=== PATIENT | female | born 1940 | race Caucasian/White ===

== ENCOUNTER 2017-03-27 05:49 | Observation (INO) | payer MEDICARE ==
[~2017-03-27] VITALS: Ht 157.5 cm; Wt 76.0 kg
[~2017-03-27 05:49] MED LIST: CITA40TA4 PO; DILA2TAB4 PO; DOCU1CAP66 PO; FURO20TA PO; OMEP20TA93 PO; TEMA15CA PO
[2017-03-27] MEDS ORDERED: METOPROLOL TARTRATE 25 MG TAB PO PRN (06:15)
[2017-03-27] MEDS ORDERED: ceFAZolin 2 GM PREMIX 50 ML IV SCH (06:15)
[2017-03-27] MEDS ORDERED: POVIDONE IODINE 5% (ANTISEPSIS KIT) 4 APPLICATIONS EACH NARE PRN (06:15)
[2017-03-27] MEDS ORDERED: CHLORHEXIDINE GLUCONATE 2 % 1 PACK (2 CLOTHS) TOPICAL PRN (06:15)
[2017-03-27] MEDS ORDERED: VANCOMYCIN 1000 MG/NS 250 ML (for <70 kg) IV SCH ×2 (06:15)
[2017-03-27] MEDS ORDERED: LACTATED RINGER'S 1000 ML IV PRN (06:15)
[2017-03-27] MEDS ORDERED: SODIUM CHLORID 0.9% 500 ML IV PRN (06:15)
[2017-03-27] MEDS ORDERED: CHLORHEXIDINE GLUCONATE 4% SOLN 120 ML BTL TOPICAL SCH (06:15)
[2017-03-27] MEDS ORDERED: ENDO10TA8 PO (07:41)
[2017-03-27] MEDS ORDERED: GENTAMICIN SULFATE 80 MG/2 ML VIAL ONE (07:54)
[2017-03-27] MEDS ORDERED: APREPITANT 40 MG CAP ONE (08:13)
[2017-03-27] MEDS ORDERED: BUPIVACAINE/EPINEPHRINE 0.25% PF 30 ML VIAL ONE (10:08)
[2017-03-27] MEDS ORDERED: HYDROmorphone HCL PF 1 MG/ML VIAL IV PUSH PRN (10:30)
[2017-03-27] MEDS ORDERED: diphenhydrAMINE HCL 25 MG CAP PO PRN (10:30)
--- NOTE | 2017-03-27 10:33 | PD.OP ---
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 Surgeon: Raul Cr Senior Product Engineer(s): EVENS Aguilar PA-C The surgical procedure was assisted by my physician trust manager assistant. My P.A. presence was necessary throughout this case for the manipulation and positioning of the surgical extremity. My P.A. was assisting me throughout the duration of this procedure. The skill set of a physician trust manager assistant was medically necessary to complete this procedure. During the surgical case the surgical assistant certified was working at the back table and the physician trust manager assistant was directly assisting me. Operation and Findings: Patient was seen and evaluated preoperatively. Treatment options were discussed regarding left humerus fracture nonunion including surgical and nonsurgical treatments. After detailed discussion of risk and benefits of procedure patient wishes to proceed with surgery. Risks of surgery include bleeding, infection, nonunion, malunion, painful hardware, loss of motion of shoulder and elbow, weakness and numbness of arm, as well as medical competitions including blood clots stroke and . Patient was brought to operating room and placed on the OR table. GETA was administered by anesthesiologist. Left arm and shoulder were prepped with alcohol followed by Hibiclens and draped usual sterile fashion. Timeout procedure was performed. IV antibiotics were given prior to incision. A standard anterior approach was utilized. Subcutaneous tissues was dissected with Bovie. Cephalic vein was identified and protected. Proximally the deltopectoral interval was opened. Distally the brachialis was split. The fracture and hardware were identified. Attention was now turned toward hardware removal. The plate was completely exposed. There was dense scar tissue around the plate. Each of the screws was now removed. An osteotome was used to elevate the plate. Curettes were used to obtain tissue from around the fracture site for cultures. Next attention was turned towards debridement of the nonunion site. Soft tissue was removed from the fracture site. Fracture site was cleaned with curettes and rongeur. A TPS bur was used to debride the bone back to healthy bleeding bone. The humerus was shortened a few millimeters to obtain good bone contact for compression. The wound was thoroughly irrigated with sterile saline. At this point the fracture was reduced using fracture tenaculums. Multiplanar fluoroscopy confirmed excellent of fracture. A Synthes 4.5 plate was contoured to fit the humerus. Plate was provisionally held the bone with K wires. 4.5 cortical screws were placed on each side of the fracture in compression mode. The screws were placed to add compression to fracture. Multiple screws were placed in each side of the fracture. All screws were predrilled and premeasured for appropriate length. Final fluoroscopy revealed excellent alignment of fracture with well-placed hardware. Incision was thoroughly irrigated. At this point attention was turned iliac crest bone grafting. A 3 cm incision was made over the iliac crest. Subcutaneous tissue dissected with Bovie. Osteotomes were used to create a window in the iliac crest. Bone graft was now harvested from the iliac crest using curettes. After completion of harvesting of the bone graft fascia was closed with #1 Vicryl. Subcutaneous tissues closed with 3-0 Vicryl. Skin was closed with morelia. The incision area was infiltrated with quarter percent Marcaine with epinephrine. Blood was also harvested from the bone graft site. This was mixed with Nucell stem cell graft. After thawing of the stem cells and blood, this was mixed with iliac crest bone graft. This bone graft was now packed around the fracture nonunion site. The defect was completely filled. Fascia was closed with #1 Vicryl,. Subcutaneous tissues closed with 3-0 Vicryl and skin was closed with morelia. Sterile dressings were applied. The patient was transferred to recovery in stable condition. Raul Cr MD Mar 27, 2017 10:33
[2017-03-27] MEDS ORDERED: DO NOT ADM ANY ANTICOAGULANT DRUGS PRN (11:00)
--- NOTE | 2017-03-27 11:11 | RADRPT ---
EXAM DATE/TIME: 03/27/2017 09:58 [facility] COMPARISON: No previous studies available for comparison. INDICATIONS : Left humerus fracture repair. OR. MEDICAL HISTORY : None. SURGICAL HISTORY : None. ENCOUNTER: Initial ACUITY: 1 day PAIN SCORE: Non-responsive. LOCATION: Left humerus FINDINGS: Two view examination of the left humerus demonstrates a side plate and multiple osseous screw securin g probable nonunion of a proximal humeral diaphyseal fracture. Fracture fragments are in excellent an atomic alignment. CONCLUSION: Sideplate and osseous screws securing a proximal humeral diaphyseal fracture as above. Abiodun Hodgson MD on March 27, 2017 at 11:07 Board Certified Radiologist. This report was verified electronically.
[2017-03-27] MEDS ORDERED: *HYDROmorphone PF 1 MG VIAL PERIprocedural Use ONLY ONE ×2 (11:15→11:37)
[2017-03-27] MEDS ORDERED: DEXAMETHASONE SOD PHOS 4 MG/ML VIAL IV ONE (12:00)
[2017-03-27] MEDS ORDERED: ePHEDrine/NS 25 MG/5 ML SYR IV ONE (12:00)
[2017-03-27] MEDS ORDERED: PROPOFOL 200 MG/20 ML AMP IV ONE (12:00)
[2017-03-27] MEDS ORDERED: GLYCOPYRROLATE 1 MG/5 ML SYRINGE IV PUSH ONE (12:00)
[2017-03-27] MEDS ORDERED: ONDANSETRON HCL 4 MG/2 ML VIAL IV PUSH ONE (12:00)
[2017-03-27] MEDS ORDERED: ROCURONIUM INJ 50 MG/5 ML SYRINGE IV PUSH ONE (12:00)
[2017-03-27] MEDS ORDERED: NEOSTIGMINE 3 MG/3 ML SYR IV ONE (12:00)
[2017-03-27] MEDS ORDERED: PHENYLEPH/NS 1000 MCG/10 ML SYR IV ONE (12:00)
[2017-03-27] MEDS ORDERED: MIDAZOLAM HCL 2 MG/2 ML VIAL IV ONE (12:00)
[2017-03-27] MEDS ORDERED: LIDOCAINE HCL 1% PF 5 ML AMPULE OTHER ONE (12:00)
--- NOTE | 2017-03-27 14:04 | EKG ---
Date Performed: 03/27/2017 Time Performed: 06:49:27 PTAGE: 76 years EKG: Sinus rhythm NORMAL ECG NO PREVIOUS TRACING DOCTOR: Luis Lovelace Interpretating Date/Time 03/27/2017 14:01:26
[2017-03-27 15:00] VITALS: BP 113/58; PULSE 79; RESP 16; TEMP 96.8; O2SAT 95
[2017-03-27] MEDS ORDERED: ERGOCALCIFEROL (VIT D2) 50,000 UNIT CAP PO SCH (15:00)
[2017-03-27] MEDS: HYDROmorphone HCL 2 MG TAB PO PRN (17:58)
[2017-03-27] MEDS: ceFAZolin 2 GM PREMIX 50 ML IV SCH (17:58)
[2017-03-27] MEDS: CALCIUM/VITAMIN D 250 MG/125 U TAB PO SCH (17:58)
[2017-03-27 20:26] VITALS: BP 97/52; PULSE 78; RESP 16; TEMP 97.4; O2SAT 96
[2017-03-27 20:40] VITALS: O2SAT 95
[2017-03-27] MEDS: ONDANSETRON HCL 4 MG/2 ML VIAL IVP PRN (22:44)
[2017-03-27] MEDS: SODIUM CHLORIDE 0.9% FLUSH 5 ML FLUSH IVF SCH (22:45)
[2017-03-27] MEDS: TEMAZEPAM 15 MG CAP PO PRN (23:38)
[2017-03-28 00:28] VITALS: BP_SYST 100; BP_SYST 129; BP_DIAS 59; BP_DIAS 77; PULSE 77; PULSE 96; RESP 16; RESP 17; TEMP 97; TEMP 97.8; O2SAT 97; O2SAT 98
[2017-03-28] MEDS: ceFAZolin 2 GM PREMIX 50 ML IV SCH ×2 (01:15→08:02)
[2017-03-28 04:26] VITALS: BP 114/57; PULSE 78; RESP 16; TEMP 97.7; O2SAT 98
[2017-03-28] MEDS: ONDANSETRON HCL 4 MG/2 ML VIAL IVP PRN ×5 (06:05→23:59)
[2017-03-28] MEDS: HYDROmorphone HCL 2 MG TAB PO PRN ×3 (06:06→14:52)
--- NOTE | 2017-03-28 06:55 | PD.ORT.PN ---
Subjective Subjective Remarks Pain controlled but complains of more pain from iliac crest graft site Objective Vitals Vital Signs Date Time Temp Pulse Resp B/P (MAP) Pulse Ox O2 Delivery O2 Flow Rate FiO2 03/28/17 04:26 97.7 78 16 114/57 (76) 98 03/28/17 00:28 97.8 77 16 100/59 (73) 98 03/27/17 20:40 95 Nasal Cannula 2.00 03/27/17 20:26 97.4 78 16 97/52 (67) 96 03/27/17 15:00 96.8 79 16 113/58 (76) 95 03/27/17 14:00 98.0 81 17 110/60 (77) 95 Nasal Cannula 2 03/27/17 13:30 81 17 115/59 (77) 96 Nasal Cannula 2 03/27/17 13:00 83 17 110/59 (76) 95 Nasal Cannula 2 03/27/17 12:30 83 17 111/58 (75) 95 Nasal Cannula 2 03/27/17 12:15 80 16 119/56 (77) 95 Nasal Cannula 2 03/27/17 12:00 83 16 110/55 (73) 95 Nasal Cannula 2 03/27/17 11:45 76 16 140/66 (90) 95 Nasal Cannula 2 03/27/17 11:30 75 16 134/68 (90) 96 Nasal Cannula 2 03/27/17 11:15 80 15 131/78 (95) 99 Nasal Cannula 3 03/27/17 10:59 98.1 79 15 142/62 (88) 99 Nasal Cannula 3 03/27/17 07:19 97.9 71 20 144/77 (99) 100 I/O 03/27/17 03/27/17 03/27/17 03/28/17 03/28/17 03/28/17 07:00 15:00 23:00 07:00 15:00 23:00 Intake Total 2000 ml 240 ml 50 ml Output Total 100 ml Balance 1900 ml 240 ml 50 ml Intake Oral 240 ml IV Total 50 ml Other 2000 ml Output Estimated Blood Loss 100 ml # Voids 2 # Bowel Movements 0 Imaging Last 72 hours Impressions Humerus X-Ray 03/27/17 0000 Signed Impressions: Service Date/Time: Monday, March 27, 2017 09:58 - CONCLUSION: Sideplate and osseous screws securing a proximal humeral diaphyseal fracture as above. Abiodun Hodgson MD Objective Remarks Left upper extremity: Clean dry dressings intact with sling in place. Intact sensation distally over the radial ulnar median nerve distributions with good capillary refills. She has full extension and flexion of all fingers Right hip: Clean dry dressings intact. Mild drainage Assessment & Plan Assessment and Plan Left humeral shaft nonunion status post removal of hardware and open reduction internal fixation with iliac crest bone graft POD 1 Nonweightbearing left upper extremity Physical therapy for pendulum swings and also to help with ambulation Plan on discharge tomorrow Incentive spirometry José Moe Jr. Mar 28, 2017 06:55
[2017-03-28] MEDS: CHOLECALCIFEROL (VIT D3) 1000 UNIT TAB PO SCH (07:50)
[2017-03-28] MEDS: FUROSEMIDE 20 MG TAB PO SCH (07:50)
[2017-03-28] MEDS: DOCUSATE SODIUM 100 MG CAP PO SCH (07:50)
[2017-03-28] MEDS: PANTOPRAZOLE SOD 20 MG DELAYED RELEASE TAB PO SCH (07:50)
[2017-03-28] MEDS: CALCIUM/VITAMIN D 250 MG/125 U TAB PO SCH ×3 (07:51→18:11)
[2017-03-28] MEDS: SODIUM CHLORIDE 0.9% FLUSH 5 ML FLUSH IVF SCH ×2 (07:51→20:03)
[2017-03-28 08:00] VITALS: BP 118/58; PULSE 82; RESP 16; TEMP 98.1; O2SAT 94
[2017-03-28] MEDS ORDERED: BISACODYL EC 5 MG TABEC PO PRN (08:00)
[2017-03-28] MEDS ORDERED: POLYETHYLENE GLYCOL 17 GM PKG PO PRN (08:00)
[2017-03-28] MEDS: CITALOPRAM HYDROBROMIDE 40 MG TAB PO SCH (08:02)
[2017-03-28 12:00] VITALS: BP 116/55; PULSE 90; RESP 16; TEMP 99; O2SAT 94
[2017-03-28] MEDS: MAGNESIUM HYDROXIDE SUSP 30 ML CUP PO PRN (14:52)
[2017-03-28 16:00] VITALS: BP 112/56; PULSE 89; RESP 16; TEMP 98.6; O2SAT 94
[2017-03-28 19:00] VITALS: BP 113/62; PULSE 89; RESP 17; TEMP 98.3; O2SAT 96
[2017-03-28] MEDS: oxyCODONE/ACETAMINOPHEN 10 MG/325 MG TAB PO PRN (19:12)
[2017-03-28] MEDS: TEMAZEPAM 15 MG CAP PO PRN (23:59)
[2017-03-29] VITALS: BP 93/55; PULSE 71; RESP 16; TEMP 96.6; O2SAT 97
[2017-03-29 04:00] VITALS: BP 93/55; PULSE 71; RESP 16; TEMP 96.6; O2SAT 97
[2017-03-29] MEDS: MAGNESIUM HYDROXIDE SUSP 30 ML CUP PO PRN ×2 (04:46→17:10)
[2017-03-29] MEDS: oxyCODONE/ACETAMINOPHEN 10 MG/325 MG TAB PO PRN ×6 (04:47→21:33)
[2017-03-29] MEDS: SODIUM CHLORIDE 0.9% FLUSH 5 ML FLUSH IVF PRN ×2 (04:48)
--- NOTE | 2017-03-29 06:36 | PD.ORT.PN ---
Subjective Subjective Remarks Pain controlled but complains of more pain from iliac crest graft site Objective Vitals Vital Signs Date Time Temp Pulse Resp B/P (MAP) Pulse Ox O2 Delivery O2 Flow Rate FiO2 03/28/17 20:21 Nasal Cannula 3.00 03/28/17 19:00 98.3 89 17 113/62 (79) 96 03/28/17 16:28 16 03/28/17 16:00 98.6 89 16 112/56 (74) 94 03/28/17 12:00 99.0 90 16 116/55 (75) 94 03/28/17 08:00 98.1 82 16 118/58 (78) 94 I/O 03/28/17 03/28/17 03/28/17 03/29/17 03/29/17 03/29/17 07:00 15:00 23:00 07:00 15:00 23:00 Intake Total 482 ml 480 ml 480 ml Balance 482 ml 480 ml 480 ml Intake Oral 120 ml 480 ml 480 ml IV Total 362 ml # Voids 1 3 3 # Bowel Movements 0 0 0 Imaging Last 72 hours Impressions Humerus X-Ray 03/27/17 0000 Signed Impressions: Service Date/Time: Monday, March 27, 2017 09:58 - CONCLUSION: Sideplate and osseous screws securing a proximal humeral diaphyseal fracture as above. Abiodun Hodgson MD Objective Remarks Left upper extremity: Clean dry dressings intact with sling in place. Intact sensation distally over the radial ulnar median nerve distributions with good capillary refills. She has full extension and flexion of all fingers Right hip: Clean dry dressings intact. Mild drainage Assessment & Plan Assessment and Plan Left humeral shaft nonunion status post removal of hardware and open reduction internal fixation with iliac crest bone graft POD 2 Nonweightbearing left upper extremity Physical therapy for pendulum swings and also to help with ambulation Weightbearing as tolerated bilateral lower extremities Due to difficulty with ambulation case management evaluation for possible rehabilitation placement José Moe Jr. Mar 29, 2017 06:36
[2017-03-29] MEDS ORDERED: DILA2TAB4 PO (06:46)
[2017-03-29] MEDS: PANTOPRAZOLE SOD 20 MG DELAYED RELEASE TAB PO SCH (09:11)
[2017-03-29] MEDS: ONDANSETRON HCL 4 MG/2 ML VIAL IVP PRN ×4 (09:12→21:33)
[2017-03-29] MEDS: CALCIUM/VITAMIN D 250 MG/125 U TAB PO SCH ×3 (09:12→17:11)
[2017-03-29] MEDS: CITALOPRAM HYDROBROMIDE 40 MG TAB PO SCH (09:12)
[2017-03-29] MEDS: FUROSEMIDE 20 MG TAB PO SCH (09:12)
[2017-03-29] MEDS: DOCUSATE SODIUM 100 MG CAP PO SCH (09:12)
[2017-03-29] MEDS: CHOLECALCIFEROL (VIT D3) 1000 UNIT TAB PO SCH (09:12)
[2017-03-29] MEDS: SODIUM CHLORIDE 0.9% FLUSH 5 ML FLUSH IVF SCH ×2 (09:13→21:00)
[2017-03-29 09:15] VITALS: BP 118/58; PULSE 82; RESP 16; TEMP 96.2; O2SAT 93
[2017-03-29 12:00] VITALS: BP 106/60; PULSE 83; RESP 16; TEMP 96; O2SAT 96
[2017-03-29 16:00] VITALS: BP 115/60; PULSE 80; RESP 16; TEMP 98.9; O2SAT 92
[2017-03-29 19:00] VITALS: BP 99/50; PULSE 80; RESP 15; TEMP 97.3; O2SAT 91
[2017-03-29] MEDS: TEMAZEPAM 15 MG CAP PO PRN (21:38)
[2017-03-30] VITALS: BP 92/60; PULSE 78; RESP 16; TEMP 97.2; O2SAT 92
[2017-03-30 04:00] VITALS: BP 103/58; PULSE 67; RESP 16; TEMP 97.7; O2SAT 92
[2017-03-30] MEDS: ONDANSETRON HCL 4 MG/2 ML VIAL IVP PRN ×2 (04:59→09:43)
[2017-03-30] MEDS: oxyCODONE/ACETAMINOPHEN 10 MG/325 MG TAB PO PRN ×2 (04:59→09:42)
[2017-03-30] MEDS: SODIUM CHLORIDE 0.9% FLUSH 5 ML FLUSH IVF PRN (05:00)
--- NOTE | 2017-03-30 06:39 | PD.ORT.PN ---
Subjective Subjective Remarks Pain controlled but complains of less pain from iliac crest graft site Objective Vitals Vital Signs Date Time Temp Pulse Resp B/P (MAP) Pulse Ox O2 Delivery O2 Flow Rate FiO2 03/30/17 04:00 97.7 67 16 103/58 (73) 92 03/30/17 00:00 97.2 78 16 92/60 (71) 92 03/29/17 19:00 97.3 80 15 99/50 (66) 91 03/29/17 16:00 98.9 80 16 115/60 (78) 92 03/29/17 12:00 96.0 83 16 106/60 (75) 96 03/29/17 09:15 96.2 82 16 118/58 (78) 93 I/O 03/29/17 03/29/17 03/29/17 03/30/17 03/30/17 03/30/17 07:00 15:00 23:00 07:00 15:00 23:00 Intake Total 250 ml 480 ml 300 ml Balance 250 ml 480 ml 300 ml Intake Oral 250 ml 480 ml 300 ml # Voids 3 3 2 # Bowel Movements 0 0 0 Imaging Last 72 hours Impressions Humerus X-Ray 03/27/17 0000 Signed Impressions: Service Date/Time: Monday, March 27, 2017 09:58 - CONCLUSION: Sideplate and osseous screws securing a proximal humeral diaphyseal fracture as above. Abiodun Hodgson MD Objective Remarks Left upper extremity: Clean dry dressings intact with sling in place. Intact sensation distally over the radial ulnar median nerve distributions with good capillary refills. She has full extension and flexion of all fingers Right hip: Clean dry dressings intact. Mild drainage Assessment & Plan Assessment and Plan Left humeral shaft nonunion status post removal of hardware and open reduction internal fixation with iliac crest bone graft POD 3 Nonweightbearing left upper extremity Physical therapy for pendulum swings and also to help with ambulation Weightbearing as tolerated bilateral lower extremities PT twice a day DC to home today Case management home health care Follow-up Dr. Cr or PA in 2 weeks José Moe Jr. Mar 30, 2017 06:38
[2017-03-30] MEDS ORDERED: ENDO10TA8 PO (06:55)
[2017-03-30] MEDS ORDERED: ZOFR4TAB PO (06:55)
[2017-03-30] MEDS: FUROSEMIDE 20 MG TAB PO SCH (09:00)
--- NOTE | 2017-03-30 09:03 | HHI.FF ---
Face to Face Verification Diagnosis: (1) Closed left humeral fracture Occupational Therapy Left UE Weight Bearing: Non WB Left UE Range of Motion: Passive ROM (elbow. no motion of shoulder) Nursing Dressing Changes: Daily dressing change, Xeroform, Coverderm/Primapore I have seen patient Orly Jimenez on 03/30/17. My clinical findings support the need for the requested home health care services because: Ltd mobility - disease progression I certify that my clinical findings support that this patient is homebound because: Post-op weakness El Cool Mar 30, 2017 09:03
[2017-03-30] MEDS: DOCUSATE SODIUM 100 MG CAP PO SCH (09:42)
[2017-03-30] MEDS: PANTOPRAZOLE SOD 20 MG DELAYED RELEASE TAB PO SCH (09:43)
[2017-03-30] MEDS: CITALOPRAM HYDROBROMIDE 40 MG TAB PO SCH (09:43)
[2017-03-30] MEDS: CHOLECALCIFEROL (VIT D3) 1000 UNIT TAB PO SCH (09:43)
[2017-03-30] MEDS: CALCIUM/VITAMIN D 250 MG/125 U TAB PO SCH (09:43)
[2017-03-30] MEDS: SODIUM CHLORIDE 0.9% FLUSH 5 ML FLUSH IVF SCH (09:44)
[2017-03-30 09:45] VITALS: O2SAT 93
== END 2017-03-30 11:55 | disposition home or self-care (01) ==
LOC: HSDC 05:49 → HSDI 10:28 → N06A 14:16
PROVIDERS: ADMIT Orthopaedic Surgery Orthopaedic Trauma; ATTEND Orthopaedic Surgery Orthopaedic Trauma
DX: S42.302K Unspecified fracture of shaft of humerus, left arm, subsequent encounter for fracture with nonunion (principal); Z01.810 Encounter for preprocedural cardiovascular examination; Z16.20 Resistance to unspecified antibiotic
CPT/HCPCS: 01744; 24435; 73060; 76000; 87015; 87070; 87102; 87116; 87176; 87185; 87205; 87206; 93005; 97110; 97116; 97162; 97166; 97535; C1713; C1769; G8987; G8988; J0690; J1100; J1170; J1580; J2250; J2370; J2405; J2710; J3010; J3370; J7050; J7120; J8501; 96365; 96366; 96375; 96376; G0378

== ENCOUNTER 2017-03-30 15:05 | Inpatient (IN) | payer MEDICARE ==
[~2017-03-30] VITALS: Ht 157.5 cm; Wt 69.3 kg
[~2017-03-30 15:05] MED LIST changes: +ENDO10TA8 PO; +ZOFR4TAB PO
[2017-03-30 15:08] VITALS: BP 110/54; PULSE 86; RESP 15; TEMP 98.4; O2SAT 95
--- NOTE | 2017-03-30 16:13 | PD ---
HPI Chief Complaint: Abnormal Results Time Seen by Provider: 16:01 Travel History International Travel<30 days: No Contact w/Intl Traveler<30days: No Traveled to known affect area: No History of Present Illness HPI Is a 76-year-old female presents emergency department after sent by Dr. Cr' s office for postoperative infection. Patient barely had a nonunion of her left humerus and had fixative operation. Intraoperative wound cultures were taken which showed gram-negative rods. The culture result was identify the patient was sent to the emergency department for further evaluation. Spoke with Lm WILLOUGHBY for Dr. Cr who confirms history. He states the patient will need infectious disease consultation as well as admission for IV antibiotics. He and Dr. Cr R when the possibility of a washout at this time but no definitive plan as of yet. The patient denies any fever denies any chest pain shortness breath abdominal pain nausea vomiting. Context as above symptoms are moderate, associated with right hip and left shoulder pain. Durations past few days. PFSH Past Medical History Cancer: No Cardiovascular Problems: No Diabetes: No Endocrine: No Genitourinary: No Hepatitis: No Hiatal Hernia: No Immune Disorder: No Musculoskeletal: Yes (LEFT ARM) Neurologic: No Psychiatric: Yes (ANXIETY) Reproductive: No Respiratory: No Thyroid Disease: No ?: Not Past Surgical History Abdominal Surgery: Yes (APPY,) AICD: No Cardiac Surgery: No Ear Surgery: No Endocrine Surgery: No Eye Surgery: Yes (CATARACT BILAT) Genitourinary Surgery: No Hysterectomy: Yes Joint Replacement: Yes (RIGHT SHOULDER, LEFT ARM) Oral Surgery: No Pacemaker: No Thoracic Surgery: No Social History Tobacco Use: No Substance Use: No Allergies-Medications (Allergen,Severity, Reaction): Coded Allergies: NSAIDS (Non-Steroidal Anti-Inflamma (Verified Allergy, Unknown, RASH, ) Penicillins (Verified Allergy, Unknown, HIVES, 03/27/17) Sulfa (Sulfonamide Antibiotics) (Verified Allergy, Unknown, HIVES, ) acetaminophen (Verified Allergy, Unknown, NAUSEA, 03/27/17) codeine (Verified Allergy, Unknown, NAUSEA, 03/27/17) meperidine (Verified Allergy, Unknown, NAUSEA, 03/27/17) morphine (Verified Allergy, Unknown, VIOLENT NAUSEA, 03/27/17) Reported Meds & Prescriptions Reported Meds & Active Scripts Active Zofran (Ondansetron HCl) 4 Mg Tab 4 Mg PO Q6HR PRN 7 Days Endocet (Oxycodone-Acetaminophen) 10-325 mg Tab 1 Tab PO Q4H PRN Reported Temazepam 15 Mg Cap 15 Mg PO HS PRN Stool Softener (Docusate Sodium) 100 Mg Cap 200 Cap PO DAILY Omeprazole 20 Mg Tab 20 Mg PO DAILY Furosemide 20 Mg Tab 20 Mg PO DAILY Citalopram (Citalopram Hydrobromide) 40 Mg Tab 40 Mg PO DAILY Review of Systems Except as stated in HPI: all other systems reviewed are Neg Physical Exam Narrative GENERAL: Well-developed well-nourished, no obvious distress. SKIN: Focused skin assessment warm/dry. HEAD: Atraumatic. Normocephalic. EYES: Pupils equal and round. No scleral icterus. No injection or drainage. ENT: No nasal bleeding or discharge. Mucous membranes pink and moist. NECK: Trachea midline. No JVD. CARDIOVASCULAR: Regular rate and rhythm. No murmur appreciated. RESPIRATORY: No accessory muscle use. Clear to auscultation. Breath sounds equal bilaterally. GASTROINTESTINAL: Abdomen soft, non-tender, nondistended. Hepatic and splenic margins not palpable. MUSCULOSKELETAL: No obvious deformities. No clubbing. No cyanosis. No edema. Postoperative wounds clean dry and intact, minimal appropriate swelling. 2+ bilateral equal pulses in all 4 extremities, compartments are soft. Pulses motor and sensory intact distally in all 4 extremities. NEUROLOGICAL: Awake and alert. No obvious cranial nerve deficits. Motor grossly within normal limits. Normal speech. PSYCHIATRIC: Appropriate mood and affect; insight and judgment normal. Data Data Last Documented VS Vital Signs Date Time Temp Pulse Resp B/P (MAP) Pulse Ox O2 Delivery O2 Flow Rate FiO2 03/30/17 16:24 (72) 03/30/17 15:08 98.4 86 15 95 Orders Orders Complete Blood Count With Diff (03/30/17 16:11) Comprehensive Metabolic Panel (03/30/17 16:11) Lactic Acid (03/30/17 16:11) Iv Access Insert/Monitor (03/30/17 16:11) Ecg Monitoring (03/30/17 16:11) Oximetry (03/30/17 16:11) Ondansetron Inj (Zofran Inj) (03/30/17 16:15) Sodium Chloride 0.9% Flush (Ns Flush) (03/30/17 16:15) Hydromorphone Pf Inj (Dilaudid Pf Inj) (03/30/17 16:15) Blood Culture (03/30/17 16:11) Aztreonam Inj (Azactam Inj) (03/30/17 16:45) Admit Order (Ed Use Only) (03/30/17 ) Labs Laboratory Tests Test 03/30/17 16:40 White Blood Count 9.7 TH/MM3 Red Blood Count 3.97 MIL/MM3 Hemoglobin 12.3 GM/DL Hematocrit 36.5 % Mean Corpuscular Volume 91.9 FL Mean Corpuscular Hemoglobin 31.0 PG Mean Corpuscular Hemoglobin Concent 33.8 % Red Cell Distribution Width 13.9 % Platelet Count 337 TH/MM3 Mean Platelet Volume 8.1 FL Neutrophils (%) (Auto) 64.1 % Lymphocytes (%) (Auto) 25.1 % Monocytes (%) (Auto) 6.4 % Eosinophils (%) (Auto) 3.9 % Basophils (%) (Auto) 0.5 % Neutrophils # (Auto) 6.2 TH/MM3 Lymphocytes # (Auto) 2.4 TH/MM3 Monocytes # (Auto) 0.6 TH/MM3 Eosinophils # (Auto) 0.4 TH/MM3 Basophils # (Auto) 0.1 TH/MM3 CBC Comment DIFF FINAL Differential Comment Blood Urea Nitrogen 9 MG/DL Creatinine 0.77 MG/DL Random Glucose 154 MG/DL Total Protein 7.4 GM/DL Albumin 3.7 GM/DL Calcium Level 9.4 MG/DL Alkaline Phosphatase 114 U/L Aspartate Amino Transf (AST/SGOT) 22 U/L Alanine Aminotransferase (ALT/SGPT) 18 U/L Total Bilirubin 0.4 MG/DL Sodium Level 135 MEQ/L Potassium Level 3.7 MEQ/L Chloride Level 98 MEQ/L Carbon Dioxide Level 31.4 MEQ/L Anion Gap 6 MEQ/L Estimat Glomerular Filtration Rate 73 ML/MIN Lactic Acid Level 1.6 mmol/L MDM Medical Decision Making Medical Screen Exam Complete: Yes Emergency Medical Condition: Yes Differential Diagnosis Postoperative infection, osteomyelitis, sepsis unlikely. Narrative Course Patient roomed emergency department, seem history of present illness for Dr. Cr's plan. No operative intervention at this time. Patient was started on Azactam given penicillin allergy. Given pain medicine. Will be admitted to the hospital. Dr. Cr's team requested infectious disease consultation. Diagnosis Primary Impression: Postoperative infection Additional Impression: Left shoulder pain Admitting Information Admitting Physician Requests: Admit Condition: Stable Fran Guillen MD Mar 30, 2017 16:13
[2017-03-30] MEDS ORDERED: SODIUM CHLORIDE 0.9% FLUSH 10 ML FLUSH IV FLUSH PRN ×3 (16:15→19:30)
[2017-03-30] MEDS ORDERED: ONDANSETRON HCL 4 MG/2 ML VIAL IVP ONE (16:15)
[2017-03-30] MEDS ORDERED: HYDROmorphone HCL PF 1 MG/ML VIAL IVS ONE (16:15)
[2017-03-30] MEDS ORDERED: AZTREONAM INJ 2,000 MG in SODIUM CHLORIDE 0.9% INJ 100 ML IV ONE (16:45)
[2017-03-30 17:06] LABS: AUTOMATED NEUTROPHIL # 6.2 TH/MM3 (1.8-7.7); BASOPHIL # 0.1 TH/MM3 (0-0.2); BASOPHIL % 0.5 % (0.0-2.0); EOSINOPHIL # 0.4 TH/MM3 (0-0.4); EOSINOPHIL % 3.9 % (0.0-4.0); HEMATOCRIT 36.5 % (35.0-46.0); HEMO FLAGS DIFF FINAL; LYMPH % 25.1 % (9.0-44.0); LYMPHOCYTE # 2.4 TH/MM3 (1.0-4.8); MEAN CELL VOLUME 91.9 FL (80.0-100.0); MEAN CORPUSCULAR HGB CONC 33.8 % (32.0-36.0); MONO % 6.4 % (0.0-8.0); NEUT % 64.1 % (16.0-70.0); PLATELET COUNT 337 TH/MM3 (150-450); RED BLOOD COUNT 3.97 MIL/MM3 (4.00-5.30); RED CELL DISTRIBUTION WIDTH 13.9 % (11.6-17.2); WHITE BLOOD COUNT 9.7 TH/MM3 (4.0-11.0)
[2017-03-30 17:25] LABS: ALT (GPT) 18 U/L (10-53); ANION GAP 6 MEQ/L (5-15); AST (GOT) 22 U/L (15-37); BICARBONATE 31.4 MEQ/L (21.0-32.0); BLOOD UREA NITROGEN 9 MG/DL (7-18); CHLORIDE 98 MEQ/L (98-107); GLOMERULAR FILTRATION RATE 73 ML/MIN (>89); POTASSIUM 3.7 MEQ/L (3.5-5.1); SODIUM (NA) 135 MEQ/L (136-145)
[2017-03-30 17:27] LABS: ALKALINE PHOSPHATASE 114 U/L (45-117); TOTAL BILIRUBIN ADULT 0.4 MG/DL (0.2-1.0)
[2017-03-30] MEDS ORDERED: MAGNESIUM HYDROXIDE SUSP 30 ML CUP PO PRN (18:15)
[2017-03-30] MEDS ORDERED: ONDANSETRON HCL 4 MG/2 ML VIAL IVP PRN (18:15)
[2017-03-30] MEDS ORDERED: NALOXONE HCL 0.4 MG/ML AMP IV PUSH PRN (18:15)
--- NOTE | 2017-03-30 19:19 | HHI.HP ---
HPI Service [facility] Primary Care Physician Non-Staff Admission Diagnosis Post operative infection. Diagnoses: (1) Postoperative infection Diagnosis: Principal (2) Left shoulder pain Diagnosis: Principal (3) Dehydration Diagnosis: Principal Travel History International Travel<30 Days: No Contact w/Intl Traveler <30 Da: No Traveled to Known Affected Are: No History of Present Illness This is a 76-year-old female with a PMH of Anxiety who was sent to the ER by Dr. Cr's office for postoperative infection. S/p ORIF Left Humerus by Dr. Cr on 03/27/17, intraoperative cultures positive for gram positive rods. Denies fever, chills. Sent to ER by Dr. Cr for admission and IV Abx. Pt w / no significant complaints except for left shoulder pain. On arrival, BP 92/60 , HR 78, O2 sat 92% on RA, Afebrile. CBC unremarkable. Chemistry essentially unremarkable except for GFR 73. Gram Stain 03/27/17 w/ Gram Positive Rods. S/ p Blood Cultures and Azactam in ER. Review of Systems Except as stated in HPI: all other systems reviewed are Neg ROS: 14 point review of systems otherwise negative. Past Family Social History Past Medical History PMH: Anxiety Past Surgical History PAST SURGICAL HISTORY: Appendectomy, Cataract Surgery, Left Shoulder Surgery Allergies: Coded Allergies: NSAIDS (Non-Steroidal Anti-Inflamma (Verified Allergy, Unknown, RASH, ) Penicillins (Verified Allergy, Unknown, HIVES, 03/27/17) Sulfa (Sulfonamide Antibiotics) (Verified Allergy, Unknown, HIVES, ) acetaminophen (Verified Allergy, Unknown, NAUSEA, 03/27/17) codeine (Verified Allergy, Unknown, NAUSEA, 03/27/17) meperidine (Verified Allergy, Unknown, NAUSEA, 03/27/17) morphine (Verified Allergy, Unknown, VIOLENT NAUSEA, 03/27/17) Family History PAST FAMILY HISTORY: Reviewed. No h/o DM or CAD Social History PAST SOCIAL HISTORY: Negative for alcohol, tobacco or drugs. Physical Exam Vital Signs Vital Signs Date Time Temp Pulse Resp B/P (MAP) Pulse Ox O2 Delivery O2 Flow Rate FiO2 03/30/17 18:47 03/30/17 16:24 (72) 03/30/17 15:08 98.4 86 15 110/54 (72) 95 Physical Exam PE: GENERAL: Elderly female in no acute distress. HEENT: PERRLA, EOMI. No scleral icterus or conjunctival pallor. No lid lag or facial droop. CARDIOVASCULAR: Regular rate and rhythm. No obvious murmurs to auscultation. No chest tenderness to palpation. RESPIRATORY: No obvious rhonchi or wheezing. Clear to auscultation. Breath sounds equal bilaterally. GASTROINTESTINAL: Abdomen soft, non-tender, nondistended. BS normal. MUSCULOSKELETAL: Extremities without clubbing, cyanosis, or edema. No obvious deformities. Left shoulder pain w/ movement, surgical wounds clean. NEUROLOGICAL: Awake, alert and oriented x4. No focal neurologic deficits. Moving both upper and lower extremities spontaneously. Laboratory Laboratory Tests Test 03/30/17 16:40 White Blood Count 9.7 Red Blood Count 3.97 Hemoglobin 12.3 Hematocrit 36.5 Mean Corpuscular Volume 91.9 Mean Corpuscular Hemoglobin 31.0 Mean Corpuscular Hemoglobin Concent 33.8 Red Cell Distribution Width 13.9 Platelet Count 337 Mean Platelet Volume 8.1 Neutrophils (%) (Auto) 64.1 Lymphocytes (%) (Auto) 25.1 Monocytes (%) (Auto) 6.4 Eosinophils (%) (Auto) 3.9 Basophils (%) (Auto) 0.5 Neutrophils # (Auto) 6.2 Lymphocytes # (Auto) 2.4 Monocytes # (Auto) 0.6 Eosinophils # (Auto) 0.4 Basophils # (Auto) 0.1 CBC Comment DIFF FINAL Differential Comment Blood Urea Nitrogen 9 Creatinine 0.77 Random Glucose 154 Total Protein 7.4 Albumin 3.7 Calcium Level 9.4 Alkaline Phosphatase 114 Aspartate Amino Transf (AST/SGOT) 22 Alanine Aminotransferase (ALT/SGPT) 18 Total Bilirubin 0.4 Sodium Level 135 Potassium Level 3.7 Chloride Level 98 Carbon Dioxide Level 31.4 Anion Gap 6 Estimat Glomerular Filtration Rate 73 Lactic Acid Level 1.6 Date/Time Source Procedure Growth Status 03/30/17 16:40 Blood Peripheral Aerobic Blood Culture Pending Received 03/30/17 16:40 Blood Peripheral Anaerobic Blood Culture Pending Received Result Diagram: 03/30/17 1640 03/30/17 1640 Jarocho VTE Risk Assessment Caprin[place]air VTE Risk Assessment: Mod/High Risk (score >= 2) Caprini Risk Assessment Model Point Value = 1 Point Value = 2 Point Value = 3 Point Value = 5 Age 41-60 Minor surgery BMI > 25 kg/m2 Swollen legs Varicose veins or History of unexplained or recurrent spontaneous Oral contraceptives or hormone replacement Sepsis (< 1 month) Serious lung disease, including pneumonia (< 1 month) Abnormal pulmonary function Acute myocardial infarction Congestive heart failure (< 1 month) History of inflammatory bowel disease Medical patient at bed rest Age 61-74 Arthroscopic surgery Major open surgery (> 45 min) Laparoscopic surgery (> 45 min) Malignancy Confined to bed (> 72 hours) Immobilizing plaster cast Central venous access Age >= 75 History of VTE Family history of VTE Factor V Leiden Prothrombin [id number] Lupus anticoagulant Anticardiolipin antibodies Elevated serum homocysteine Heparin-induced thrombocytopenia Other congenital or acquired thrombophilia Stroke (< 1 month) Elective arthroplasty Hip, pelvis, or leg fracture Acute spinal cord injury (< 1 month) Prophylaxis Regimen Total Risk Factor Score Risk Level Prophylaxis Regimen 0-1 Low Early ambulation 2 Moderate Order ONE of the following: *Sequential Compression Device (SCD) *Heparin 5000 units SQ BID 3-4 Higher Order ONE of the following medications: *Heparin 5000 units SQ TID *Enoxaparin/Lovenox 40 mg SQ daily (WT < 150 kg, CrCl > 30 mL/min) *Enoxaparin/Lovenox 30 mg SQ daily (WT < 150 kg, CrCl > 10-29 mL/min) *Enoxaparin/Lovenox 30 mg SQ BID (WT < 150 kg, CrCl > 30 mL/min) AND/OR *Sequential Compression Device (SCD) 5 or more Highest Order ONE of the following medications: *Heparin 5000 units SQ TID (Preferred with Epidurals) *Enoxaparin/Lovenox 40 mg SQ daily (WT < 150 kg, CrCl > 30 mL/min) *Enoxaparin/Lovenox 30 mg SQ daily (WT < 150 kg, CrCl > 10-29 mL/min) *Enoxaparin/Lovenox 30 mg SQ BID (WT < 150 kg, CrCl > 30 mL/min) AND *Sequential Compression Device (SCD) Assessment and Plan Problem List: (1) Postoperative infection ICD Code: T81.4XXA - Infection following a procedure, initial encounter Status: Acute (2) Left shoulder pain ICD Code: M25.512 - Pain in left shoulder Status: Acute (3) Dehydration ICD Code: E86.0 - Dehydration Assessment and Plan A/P: 1. Postoperative Infection: S/p Left Shoulder ORIF w/ removal of deep hardware by Dr. Cr on 03/27/17, intraop wound cultures positive for Gram Positive Rods, s/p Azactam in ER, will continue w/ IV Abx, add Vanc IV, consult ID for further recommendations. 2. Left Shoulder Pain: secondary to surgical intervention, analgesics as needed, PT for eval/tx. 3. Dehydration: GFR 73. BUN/Creat normal, IVF for hydration, repeat labs in am. 4. DVT Prophylaxis: SCD/Teds. 5. Social work for d/c planning as needed. 6. Case discussed w/ ER physician at length. Physician Certification 2 Midnight Certification Type: Admission for Inpatient Services Order for Inpatient Services The services are ordered in accordance with Medicare regulations or non- Medicare payer requirements, as applicable. In the case of services not specified as inpatient-only, they are appropriately provided as inpatient services in accordance with the 2-midnight benchmark. Estimated LOS (days): 2 days is the estimated time the patient will need to remain in the hospital, assuming treatment plan goals are met and no additional complications. Post-Hospital Plan: Not yet determined Brandy Hook MD Mar 30, 2017 19:19
[2017-03-30] MEDS ORDERED: LACTULOSE SYRUP 20 GM/30 ML CUP PO PRN (19:30)
[2017-03-30] MEDS ORDERED: HYDROmorphone HCL 2 MG TAB PO PRN (19:30)
[2017-03-30] MEDS ORDERED: BISACODYL 10 MG SUPP RECTAL PRN (19:30)
[2017-03-30] MEDS ORDERED: SENNOSIDES 8.6 MG TAB PO PRN (19:30)
[2017-03-30] MEDS ORDERED: Vancomycin Consult Pharmacy 1 EA OTHER SCH (20:15)
[2017-03-30] MEDS ORDERED: RESP: ALBUTEROL 2.5 MG/IPRATROPIUM 0.5 MG NEB (PRN) NEB (20:15)
[2017-03-30] MEDS ORDERED: DOCUSATE SODIUM 50 MG/SENNA 8.6 MG TAB PO SCH (21:00)
[2017-03-30] MEDS ORDERED: SODIUM CHLORIDE 0.9% FLUSH 10 ML FLUSH IV FLUSH SCH (21:00)
[2017-03-30 21:11] VITALS: BP 129/62; PULSE 83; RESP 18; TEMP 97.6; O2SAT 93
[2017-03-30] MEDS: SODIUM CHLOR 0.9% 1000 ML INJ 1,000 ML IV SCH (22:25)
[2017-03-30] MEDS: ONDANSETRON HCL 4 MG/2 ML VIAL IVP PRN (22:25)
[2017-03-30] MEDS: SODIUM CHLORIDE 0.9% FLUSH 10 ML FLUSH IV FLUSH SCH (22:26)
[2017-03-30] MEDS: TEMAZEPAM 15 MG CAP PO PRN (22:26)
[2017-03-30] MEDS: VANCOMYCIN 1,000 MG/NS 250 ML IV SCH ×2 (22:26)
[2017-03-30] MEDS: DOCUSATE SODIUM 50 MG/SENNA 8.6 MG TAB PO SCH (22:27)
[2017-03-30] MEDS: HYDROmorphone HCL PF 1 MG/ML VIAL IV PUSH PRN (22:28)
[2017-03-31] VITALS: BP 107/55; PULSE 80; RESP 18; TEMP 98.2; O2SAT 93
[2017-03-31] MEDS: HYDROmorphone HCL PF 1 MG/ML VIAL IV PUSH PRN ×2 (03:46→08:37)
[2017-03-31] MEDS ORDERED: AZTREONAM INJ 1,000 MG in SODIUM CHLORIDE 0.9% INJ 100 ML IV SCH (06:00)
--- NOTE | 2017-03-31 07:20 | PD.ORT.PN ---
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 Intraoperative cultures are growing gram-positive rods. Patient readmitted for IV antibiotics. Patient is currently awake and alert. Objective Vitals Vital Signs Date Time Temp Pulse Resp B/P (MAP) Pulse Ox O2 Delivery O2 Flow Rate FiO2 03/31/17 00:00 98.2 80 18 107/55 (72) 93 03/30/17 21:11 97.6 83 18 129/62 (84) 93 03/30/17 18:47 03/30/17 16:24 (72) 03/30/17 15:08 98.4 86 15 110/54 (72) 95 I/O 03/30/17 03/30/17 03/30/17 03/31/17 03/31/17 03/31/17 07:00 15:00 23:00 07:00 15:00 23:00 Intake Total 100 ml Balance 100 ml Intake IV Total 100 ml # Voids 3 # Bowel Movements 1 Result Diagram: 03/30/17 1640 03/30/17 1640 Objective Remarks Rosa is awake and alert. Pain appears to be well controlled. Examination of left arm reveals clean dry dressings in place. She has good capillary refill her fingers. Sensation intact and fingers. Assessment & Plan Assessment and Plan Orly has positive cultures from left humerus fracture site. Infectious disease consult is for IV antibiotics--will likely need 6-8 weeks of IV antibiotics followed by oral antibiotics until fracture healed Occupational therapy for passive range of motion Case management to assist in home IV antibiotic treatment Raul Ulloa MD Mar 31, 2017 07:19
[2017-03-31 07:24] LABS: AUTOMATED NEUTROPHIL # 4.1 TH/MM3 (1.8-7.7); BASOPHIL # 0.1 TH/MM3 (0-0.2); BASOPHIL % 0.8 % (0.0-2.0); EOSINOPHIL # 0.4 TH/MM3 (0-0.4); EOSINOPHIL % 5.8 % (0.0-4.0); HEMO FLAGS DIFF FINAL; LYMPHOCYTE # 1.9 TH/MM3 (1.0-4.8); MEAN CELL VOLUME 92.2 FL (80.0-100.0); MEAN CORPUSCULAR HEMOGLOBIN 30.6 PG (27.0-34.0); MEAN CORPUSCULAR HGB CONC 33.2 % (32.0-36.0); MONO % 8.9 % (0.0-8.0); NEUT % 57.5 % (16.0-70.0); PLATELET COUNT 298 TH/MM3 (150-450); RED BLOOD COUNT 3.48 MIL/MM3 (4.00-5.30); RED CELL DISTRIBUTION WIDTH 13.4 % (11.6-17.2); WHITE BLOOD COUNT 7.2 TH/MM3 (4.0-11.0)
[2017-03-31 08:00] VITALS: BP 143/63; PULSE 75; RESP 19; TEMP 97.9; O2SAT 95
[2017-03-31 08:11] LABS: ALKALINE PHOSPHATASE 88 U/L (45-117); ALT (GPT) 14 U/L (10-53); ANION GAP 8 MEQ/L (5-15); AST (GOT) 15 U/L (15-37); BICARBONATE 27.3 MEQ/L (21.0-32.0); BLOOD UREA NITROGEN 7 MG/DL (7-18); CHLORIDE 104 MEQ/L (98-107); GLOMERULAR FILTRATION RATE 89 ML/MIN (>89); POTASSIUM 4.1 MEQ/L (3.5-5.1); SODIUM (NA) 139 MEQ/L (136-145); TOTAL BILIRUBIN ADULT 0.5 MG/DL (0.2-1.0)
[2017-03-31] MEDS: ONDANSETRON HCL 4 MG/2 ML VIAL IVP PRN ×3 (08:37→23:13)
[2017-03-31] MEDS: CITALOPRAM HYDROBROMIDE 40 MG TAB PO SCH (08:37)
[2017-03-31] MEDS: FUROSEMIDE 20 MG TAB PO SCH (08:38)
[2017-03-31] MEDS: PANTOPRAZOLE SOD 20 MG DELAYED RELEASE TAB PO SCH (08:38)
[2017-03-31] MEDS: DOCUSATE SODIUM 50 MG/SENNA 8.6 MG TAB PO SCH ×2 (08:38→21:00)
[2017-03-31] MEDS: SODIUM CHLORIDE 0.9% FLUSH 10 ML FLUSH IV FLUSH SCH ×2 (09:00→21:09)
[2017-03-31] MEDS: SODIUM CHLOR 0.9% 1000 ML INJ 1,000 ML IV SCH (09:55)
--- NOTE | 2017-03-31 10:50 | PD.CONS ---
History of Present Illness Service Infectious disease Consult Requested By Dr Hook Reason for Consult Evaluate patient with intraoperative culture growing anaerobic gram-positive dominique Primary Care Physician Non-Staff Diagnoses: History of Present Illness Patient seen and examined. Records reviewed. Patient is a 76-year-old female, who sustained a fracture to her left humerus September 2015. She was hospitalized at [facility] at that time, and underwent surgical repair all for fracture. According to the patient since after that surgery, he had persistent pain in her left upper arm. She mentioned that x- rays were done, and it was showing some slow healing of the fracture. The pain however was persistent, and she underwent CT of the left upper extremity September 2016 and showing nonunion of the fracture. She went to surgery again September [address] [place] [id number], and underwent ORIF, and iliac bone crest grafting. There was no improvement and she continued to have pain, so another CT was done either January on February, and it is showing nonunion of the fracture again. 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 Gram stain was negative. She was discharged home March 30, and apparently the culture that day a showing gram-positive dominique in the anaerobic bottle. Patient was called in and was admitted to the hospital for further evaluation and treatment. She has not had any fever or chills or sweats. She has not had any procedure done in the last year and a half. She had a cap on one of her tooth, last December 2016, and she took some antibiotics for that procedure. Infectious disease consultation has been requested to evaluate the patient. Review of Systems Constitutional: DENIES: Fever, Chills, Change in appetite, Night Sweats Eyes: DENIES: Eye pain Ears, nose, mouth, throat: DENIES: Vertigo, Nasal discharge, Oral lesions, Throat pain, Ear Pain Respiratory: DENIES: Cough, Sputum production, Shortness of breath Cardiovascular: DENIES: Chest pain, Palpitations, Syncope, Dyspnea on Exertion Gastrointestinal: DENIES: Abdominal pain, Constipation, Diarrhea, Nausea, Vomiting, Difficulty Swallowing Genitourinary: DENIES: Urinary frequency, Urinary incontinence, Urgency, Hematuria, Dysuria Musculoskeletal: DENIES: Joint pain, Joint Swelling, Back pain Integumentary: DENIES: Rash Hematologic/lymphatic: DENIES: Lymphadenopathy Immunologic/allergic: DENIES: Urticaria Neurologic: COMPLAINS OF: Tremor, DENIES: Headache, Localized weakness Psychiatric: DENIES: Depression Past Family Social History Allergies: Coded Allergies: NSAIDS (Non-Steroidal Anti-Inflamma (Verified Allergy, Unknown, RASH, ) Penicillins (Verified Allergy, Unknown, HIVES, 03/31/17) Sulfa (Sulfonamide Antibiotics) (Verified Allergy, Unknown, HIVES, ) acetaminophen (Verified Allergy, Unknown, NAUSEA, 03/31/17) codeine (Verified Allergy, Unknown, NAUSEA, 03/31/17) meperidine (Verified Allergy, Unknown, NAUSEA, 03/31/17) morphine (Verified Allergy, Unknown, VIOLENT NAUSEA, 03/31/17) Past Medical History Anxiety, GERD Essential tremors Past Surgical History Appendectomy Cataract Surgery Hysterectomy Rotator cuff repair on the right 2011 Fracture left humerus, first opening reduction internal fixation done September 2015, repeat surgery with ORIF and iliac crest bone grafting done September 2016 Most recent surgery March 27, 2017 with removal of hardware, ORIF with iliac crest bone grafting Reported Medications I attest that I obtained, updated or reviewed the home and current medications. Reported Meds & Active Scripts Active Zofran (Ondansetron HCl) 4 Mg Tab 4 Mg PO Q6HR PRN 7 Days Endocet (Oxycodone-Acetaminophen) 10-325 mg Tab 1 Tab PO Q4H PRN Reported Temazepam 15 Mg Cap 15 Mg PO HS PRN Stool Softener (Docusate Sodium) 100 Mg Cap 200 Cap PO DAILY Omeprazole 20 Mg Tab 20 Mg PO DAILY Furosemide 20 Mg Tab 20 Mg PO DAILY Citalopram (Citalopram Hydrobromide) 40 Mg Tab 40 Mg PO DAILY Active Ordered Medications Current Medications Medications (Trade) Dose Ordered Sig/Tarik Route Start Time Stop Time Status Last Admin (Narcan Inj) 0.4 mg UNSCH PRN IV PUSH 03/30/17 18:15 (Milk Of Magnesia Liq) 30 ml Q12H PRN PO 03/30/17 18:15 Sodium Chloride 1,000 ml @ 100 mls/hr Q10H IV 03/30/17 19:17 03/31/17 09:55 (NS Flush) 2 ml UNSCH PRN IV FLUSH 03/30/17 19:30 (NS Flush) 2 ml BID IV FLUSH 03/30/17 21:00 03/30/17 22:26 (Zofran Inj) 4 mg Q6H PRN IVP 03/30/17 19:30 03/31/17 08:37 (Dilaudid Pf Inj) 0.5 mg Q3H PRN IV PUSH 03/30/17 19:30 03/31/17 08:37 (Dilaudid) 1 mg Q4H PRN PO 03/30/17 19:30 (Stephanie-Colace) 1 tab BID PO 03/30/17 21:00 (Senokot) 17.2 mg Q12H PRN PO 03/30/17 19:30 (Dulcolax Supp) 10 mg DAILY PRN RECTAL 03/30/17 19:30 (Lactulose Liq) 30 ml DAILY PRN PO 03/30/17 19:30 (CeleXA) 40 mg DAILY PO 03/31/17 09:00 03/31/17 08:37 (Lasix) 20 mg DAILY PO 03/31/17 09:00 03/31/17 08:38 (Restoril) 15 mg HS PRN PO 03/30/17 19:30 03/30/17 22:26 (Protonix) 20 mg DAILY PO 03/31/17 09:00 03/31/17 08:38 (Duoneb Neb) 1 ampule Q4HR NEB PRN NEB 03/30/17 20:15 Pharmacy Profile Note 0 ml @ 0 mls/hr UNSCH OTHER 03/30/17 20:15 Aztreonam 1000 mg/ Sodium Chloride 100 ml @ 200 mls/hr Q8H IV 03/31/17 06:00 03/31/17 06:16 Vancomycin HCl 1000 mg/Sodium Chloride 250 ml @ 250 mls/hr Q24H IV 03/30/17 22:00 03/30/17 22:26 Miscellaneous Information SPECIFIC LAB TO BE NOBLE... ONCE ONCE .XX 04/02/17 21:45 04/02/17 21:46 Family History Unremarkable Social History No smoking No alcohol abuse No illicit drugs Physical Exam Vital Signs Vital Signs Date Time Temp Pulse Resp B/P (MAP) Pulse Ox O2 Delivery O2 Flow Rate FiO2 03/31/17 09:07 18 03/31/17 08:00 97.9 75 19 143/63 (89) 95 03/31/17 00:00 98.2 80 18 107/55 (72) 93 03/30/17 21:11 97.6 83 18 129/62 (84) 93 03/30/17 18:47 03/30/17 16:24 (72) 03/30/17 15:08 98.4 86 15 110/54 (72) 95 Physical Exam GENERAL: Patient is a well-nourished, well-developed female, awake and alert , not in respiratory distress. SKIN: Warm and dry. No generalized rash, no ecchymoses and no evidence of embolic lesions. HEAD: Atraumatic. Normocephalic. No temporal wasting, or tenderness. EYES: [place] conjunctiva. No petechia or hemorrhage. Pupils equal, round and reactive to light. Extraocular movements full and intact. No scleral icterus. No injection or drainage. EARS, NOSE AND THROAT: Nose without bleeding or purulent nasal discharge. No sinus tenderness. Mucous membranes pink and moist. No oral lesions noted. No exudate. No oral thrush. NECK: Trachea midline. Supple and not tender, no meningeal signs . No lymphadenopathy. CARDIOVASCULAR: Regular rate and rhythm. No murmurs, rubs or gallops heard RESPIRATORY: Clear to auscultation. Breath sounds equal bilaterally. No rales , wheezing or rhonchi ABDOMEN: Soft, non-tender, nondistended. Bowel sounds present and normoactive. No guarding. No rebound. No organomegaly. Dry incision on RLQ EXTREMITIES: No clubbing, cyanosis, or edema BLE. No joint effusion, has good ROM BLE. No calf tenderness. Well perfused and warm. LUE - has dry intact dressing, dry incision on shoulder and upper arm NEUROLOGICAL: Awake and alert. Cranial nerves grossly intact. Motor grossly within normal limits. PSYCHIATRIC: Normal affect, calm and cooperative. LINE: No evidence of infection Laboratory Laboratory Tests Test 03/30/17 16:40 03/31/17 07:05 White Blood Count 9.7 7.2 Red Blood Count 3.97 3.48 Hemoglobin 12.3 10.6 Hematocrit 36.5 32.0 Mean Corpuscular Volume 91.9 92.2 Mean Corpuscular Hemoglobin 31.0 30.6 Mean Corpuscular Hemoglobin Concent 33.8 33.2 Red Cell Distribution Width 13.9 13.4 Platelet Count 337 298 Mean Platelet Volume 8.1 7.8 Neutrophils (%) (Auto) 64.1 57.5 Lymphocytes (%) (Auto) 25.1 27.0 Monocytes (%) (Auto) 6.4 8.9 Eosinophils (%) (Auto) 3.9 5.8 Basophils (%) (Auto) 0.5 0.8 Neutrophils # (Auto) 6.2 4.1 Lymphocytes # (Auto) 2.4 1.9 Monocytes # (Auto) 0.6 0.6 Eosinophils # (Auto) 0.4 0.4 Basophils # (Auto) 0.1 0.1 CBC Comment DIFF FINAL DIFF FINAL Differential Comment Blood Urea Nitrogen 9 7 Creatinine 0.77 0.65 Random Glucose 154 128 Total Protein 7.4 5.9 Albumin 3.7 2.8 Calcium Level 9.4 8.6 Alkaline Phosphatase 114 88 Aspartate Amino Transf (AST/SGOT) 22 15 Alanine Aminotransferase (ALT/SGPT) 18 14 Total Bilirubin 0.4 0.5 Sodium Level 135 139 Potassium Level 3.7 4.1 Chloride Level 98 104 Carbon Dioxide Level 31.4 27.3 Anion Gap 6 8 Estimat Glomerular Filtration Rate 73 89 Lactic Acid Level 1.6 Date/Time Source Procedure Growth Status 03/30/17 16:40 Blood Peripheral Aerobic Blood Culture Pending Received 03/30/17 16:40 Blood Peripheral Anaerobic Blood Culture Pending Received Result Diagram: 03/31/17 0705 03/31/17 0705 Assessment and Plan Assessment and Plan IMPRESSION Positive intraop C/S LUE, S/P ASMITA, 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
--- NOTE | 2017-03-31 10:56 | HHI.PR ---
Subjective Remarks Patient reports she is feeling okay. She has some discomfort about the right hip at the site of the bone graft. Objective Vitals Vital Signs Date Time Temp Pulse Resp B/P (MAP) Pulse Ox O2 Delivery O2 Flow Rate FiO2 03/31/17 09:07 18 03/31/17 08:00 97.9 75 19 143/63 (89) 95 03/31/17 00:00 98.2 80 18 107/55 (72) 93 03/30/17 21:11 97.6 83 18 129/62 (84) 93 03/30/17 18:47 03/30/17 16:24 (72) 03/30/17 15:08 98.4 86 15 110/54 (72) 95 I/O 03/30/17 03/30/17 03/30/17 03/31/17 03/31/17 03/31/17 07:00 15:00 23:00 07:00 15:00 23:00 Intake Total 100 ml 120 ml Balance 100 ml 120 ml Intake Oral 120 ml IV Total 100 ml # Voids 3 # Bowel Movements 1 Result Diagram: 03/31/1770403/31/17704 Objective Remarks GENERAL: This is a well-nourished, well-developed patient, in no apparent distress. CARDIOVASCULAR: Normal rate and regular rhythm without murmurs, gallops, or rubs. RESPIRATORY: Good respiratory efforts. Breath sounds equal and clear to auscultation bilaterally. GASTROINTESTINAL: Abdomen soft, non-tender, non-distended. Normal active bowel sounds MUSCULOSKELETAL: Left shoulder is in a sling. Postoperative dressing appear intact. Neurovascularly intact at the hand and fingers. NEURO: Alert & Oriented x4 to person, place, time, situation. Moves all ext x4 PSYCH: Appropriate mood and affect. 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 Intraoperative cultures growing gram-positive rods. CRP and ESR elevated. Patient admitted for IV antibiotics and further workup. -Orthopedics and Infectious disease following. Antibiotics changed to cefepime , Flagyl, and vancomycin. - Follow blood cultures and further ID of the wound culture - Pain control GI prophylaxis: Stool softener PRN constipation. DVT PPx: Heparin Rafa Toro MD Mar 31, 2017 10:56
[2017-03-31] MEDS: CEFEPIME INJ 2,000 MG in SODIUM CHLORIDE 0.9% INJ 100 ML IV SCH ×2 (11:41→23:09)
[2017-03-31 12:00] VITALS: BP 126/58; PULSE 89; RESP 20; TEMP 97.5; O2SAT 96
[2017-03-31] MEDS ORDERED: HYDROmorphone HCL PF 1 MG/ML VIAL IV PUSH PRN (12:00)
[2017-03-31 12:29] LABS: BLOOD, URINE NEG (NEG); GLUCOSE,URINE NEG (NEG); KETONE, URINE NEG (NEG); NITRITE,URINE NEG (NEG); URINE COLOR LIGHT-YELLOW (YELLW/STRAW)
[2017-03-31] MEDS: oxyCODONE/ACETAMINOPHEN 10 MG/325 MG TAB PO PRN ×3 (12:32→23:08)
[2017-03-31] MEDS: metroNIDAZOLE 500 MG INJ 100 ML IV SCH ×2 (12:33→17:54)
[2017-03-31 12:37] LABS: SQUAMOUS EPITHELIAL CELL URINE 0-5 /hpf (0-5); TRANSITIONAL EPI CELLS, URINE 0-5 /hpf
[2017-03-31 12:38] LABS: COMMENT (UR) CULT NOT INDICATED; CULTURE IF INDICATED CULT NOT INDICATED
[2017-03-31 15:49] VITALS: BP 113/58; PULSE 72; RESP 19; TEMP 97.7; O2SAT 96
[2017-03-31] MEDS: HEPARIN SODIUM - SQ 10,000 UNITS/ML VIAL SQ SCH (17:55)
[2017-03-31 20:00] VITALS: BP 108/57; PULSE 82; RESP 18; TEMP 98.2; O2SAT 92
[2017-03-31] MEDS: VANCOMYCIN 1,000 MG/NS 250 ML IV SCH ×2 (21:09)
[2017-04-01 00:15] VITALS: BP 100/51; PULSE 73; RESP 18; TEMP 97; O2SAT 94
[2017-04-01] MEDS: metroNIDAZOLE 500 MG INJ 100 ML IV SCH ×5 (00:57→23:52)
[2017-04-01] MEDS: TEMAZEPAM 15 MG CAP PO PRN (01:06)
[2017-04-01 04:48] LABS: HEMATOCRIT 28.7 % (35.0-46.0); MEAN CELL VOLUME 91.4 FL (80.0-100.0); MEAN CORPUSCULAR HEMOGLOBIN 31.1 PG (27.0-34.0); PLATELET COUNT 286 TH/MM3 (150-450); RED BLOOD COUNT 3.14 MIL/MM3 (4.00-5.30); RED CELL DISTRIBUTION WIDTH 13.8 % (11.6-17.2); REVIEW FLAG FINAL; WHITE BLOOD COUNT 5.6 TH/MM3 (4.0-11.0)
[2017-04-01] MEDS: HEPARIN SODIUM - SQ 10,000 UNITS/ML VIAL SQ SCH ×2 (06:10→17:13)
[2017-04-01] MEDS: ONDANSETRON HCL 4 MG/2 ML VIAL IVP PRN ×3 (06:16→22:20)
[2017-04-01] MEDS: oxyCODONE/ACETAMINOPHEN 10 MG/325 MG TAB PO PRN ×3 (06:17→22:20)
--- NOTE | 2017-04-01 07:07 | PD.ORT.PN ---
Subjective Subjective Remarks Resting comfortably. States the pain is continuing to improve with right hip and also left arm Objective Vitals Vital Signs Date Time Temp Pulse Resp B/P (MAP) Pulse Ox O2 Delivery O2 Flow Rate FiO2 04/01/17 00:15 97.0 73 18 100/51 (67) 94 03/31/17 20:00 98.2 82 18 108/57 (74) 92 03/31/17 15:49 97.7 72 19 113/58 (76) 96 03/31/17 13:32 18 03/31/17 12:00 97.5 89 20 126/58 (80) 96 03/31/17 09:07 18 03/31/17 08:00 97.9 75 19 143/63 (89) 95 I/O 03/31/17 03/31/17 03/31/17 04/01/17 04/01/17 04/01/17 07:00 15:00 23:00 07:00 15:00 23:00 Intake Total 120 ml 1270 ml 200 ml Output Total 500 ml 900 ml Balance 120 ml 770 ml -700 ml Intake Oral 120 ml 1020 ml IV Total 250 ml 200 ml Output Urine Total 500 ml 900 ml # Voids 3 # Bowel Movements 1 1 Result Diagram: 04/01/17 0353 03/31/17 0705 Other Results Microbiology Date/Time Source Procedure Growth Status 03/30/17 16:40 Blood Peripheral Aerobic Blood Culture - Preliminary NO GROWTH IN 1 DAY Resulted 03/30/17 16:40 Blood Peripheral Anaerobic Blood Culture - Preliminary NO GROWTH IN 1 DAY Resulted 03/30/17 16:30 Blood Peripheral Aerobic Blood Culture - Preliminary NO GROWTH IN 1 DAY Resulted 03/30/17 16:30 Blood Peripheral Anaerobic Blood Culture - Preliminary NO GROWTH IN 1 DAY Resulted Objective Remarks Left upper extremity: Clean dry dressings intact. Mild swelling to proximal humerus. She has intact sensation of the radial ulnar median nerve distributions with good capillary refills. She can fully extend her fingers and make a fist. Right hip reveals clean dry dressings intact. Swelling is minimal. No erythema or drainage. Assessment & Plan Assessment and Plan Orly has positive cultures from left humerus fracture site. Infectious disease consult is for IV antibiotics--will likely need 6-8 weeks of IV antibiotics followed by oral antibiotics until fracture healed Occupational therapy for passive range of motion Physical therapy for ambulation Case management to assist in home IV antibiotic treatment Once antibiotic treatments are established and an outpatient antibiotics arranged discharge may be progressed José Moe Jr. Apr 01, 2017 07:07
[2017-04-01 08:00] VITALS: BP 137/65; PULSE 73; RESP 16; TEMP 96.8; O2SAT 92
[2017-04-01] MEDS: FORTEO 20 MCG SQ SCH (08:48)
[2017-04-01] MEDS: FUROSEMIDE 20 MG TAB PO SCH (08:54)
[2017-04-01] MEDS: DOCUSATE SODIUM 50 MG/SENNA 8.6 MG TAB PO SCH ×2 (08:54→20:27)
[2017-04-01] MEDS: PANTOPRAZOLE SOD 20 MG DELAYED RELEASE TAB PO SCH (08:54)
[2017-04-01] MEDS: CITALOPRAM HYDROBROMIDE 40 MG TAB PO SCH (08:55)
[2017-04-01] MEDS: SODIUM CHLORIDE 0.9% FLUSH 10 ML FLUSH IV FLUSH SCH ×2 (08:55→20:28)
[2017-04-01] MEDS ORDERED: diphenhydrAMINE HCL 25 MG CAP PO PRN (10:30)
[2017-04-01] MEDS: CEFEPIME INJ 2,000 MG in SODIUM CHLORIDE 0.9% INJ 100 ML IV SCH ×2 (10:52→22:19)
[2017-04-01 12:00] VITALS: BP 126/59; PULSE 77; RESP 16; TEMP 97.7; O2SAT 92
--- NOTE | 2017-04-01 12:04 | HHI.PR ---
Subjective Remarks Patient reports she is feeling better today. Pain is better controlled. Afebrile. Objective Vitals Vital Signs Date Time Temp Pulse Resp B/P (MAP) Pulse Ox O2 Delivery O2 Flow Rate FiO2 04/01/17 08:00 96.8 73 16 137/65 (89) 92 04/01/17 00:15 97.0 73 18 100/51 (67) 94 03/31/17 20:00 98.2 82 18 108/57 (74) 92 03/31/17 15:49 97.7 72 19 113/58 (76) 96 03/31/17 13:32 18 I/O 03/31/17 03/31/17 03/31/17 04/01/17 04/01/17 04/01/17 07:00 15:00 23:00 07:00 15:00 23:00 Intake Total 120 ml 1270 ml 200 ml Output Total 500 ml 900 ml Balance 120 ml 770 ml -700 ml Intake Oral 120 ml 1020 ml IV Total 250 ml 200 ml Output Urine Total 500 ml 900 ml # Voids 3 # Bowel Movements 1 1 Result Diagram: 04/01/17 0353 03/31/17 0705 Objective Remarks GENERAL: This is a well-nourished, well-developed patient, in no apparent distress. CARDIOVASCULAR: Normal rate and regular rhythm without murmurs, gallops, or rubs. RESPIRATORY: Good respiratory efforts. Breath sounds equal and clear to auscultation bilaterally. GASTROINTESTINAL: Abdomen soft, non-tender, non-distended. Normal active bowel sounds MUSCULOSKELETAL: Left shoulder is in a sling. Postoperative dressing appear intact. Neurovascularly intact at the hand and fingers. NEURO: Alert & Oriented x4 to person, place, time, situation. Moves all ext x4 PSYCH: Appropriate mood and affect. 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 Intraoperative cultures growing gram-positive rods. CRP and ESR elevated. Patient admitted for IV antibiotics and further workup. -Orthopedics and Infectious disease following. Antibiotics changed to cefepime , Flagyl, and vancomycin. - Follow blood cultures and further ID of the wound culture - Pain control GI prophylaxis: Stool softener PRN constipation. DVT PPx: Heparin Discharge Planning DC pending further ID of wound cultures and final recs from ID. Will likely need prolonged IV Abx at home. Rafa Toro MD Apr 01, 2017 12:04
[2017-04-01 16:00] VITALS: BP 117/59; PULSE 75; RESP 16; TEMP 97.1; O2SAT 91
[2017-04-01 20:00] VITALS: BP 122/60; PULSE 82; RESP 16; TEMP 98.7; O2SAT 92
[2017-04-01] MEDS: VANCOMYCIN 1,000 MG/NS 250 ML IV SCH ×2 (20:27)
[2017-04-02 00:41] VITALS: BP 145/65; PULSE 76; RESP 16; TEMP 98.8; O2SAT 93
[2017-04-02] MEDS: TEMAZEPAM 15 MG CAP PO PRN ×2 (01:04→23:57)
[2017-04-02] MEDS: ONDANSETRON HCL 4 MG/2 ML VIAL IVP PRN ×3 (04:53→21:07)
[2017-04-02] MEDS: metroNIDAZOLE 500 MG INJ 100 ML IV SCH ×4 (04:53→22:16)
[2017-04-02] MEDS: HEPARIN SODIUM - SQ 10,000 UNITS/ML VIAL SQ SCH ×2 (04:53→17:47)
[2017-04-02] MEDS: oxyCODONE/ACETAMINOPHEN 10 MG/325 MG TAB PO PRN ×2 (04:54→13:25)
--- NOTE | 2017-04-02 06:56 | PD.ORT.PN ---
Subjective Subjective Remarks s/p ASMITA with revision ORIF left humerus doing well. reports arm doing well. states pain at elbow due to swelling. reports improving hip pain Objective Vitals Vital Signs Date Time Temp Pulse Resp B/P (MAP) Pulse Ox O2 Delivery O2 Flow Rate FiO2 04/02/17 00:41 98.8 76 16 145/65 (91) 93 04/01/17 20:00 98.7 82 16 122/60 (80) 92 04/01/17 16:00 97.1 75 16 117/59 (78) 91 04/01/17 12:00 97.7 77 16 126/59 (81) 92 04/01/17 08:00 96.8 73 16 137/65 (89) 92 I/O 04/01/17 04/01/17 04/01/17 04/02/17 04/02/17 04/02/17 07:00 15:00 23:00 07:00 15:00 23:00 Intake Total 200 ml 200 ml 850 ml 200 ml Output Total 900 ml 500 ml Balance -700 ml 200 ml 850 ml -300 ml Intake Oral 500 ml IV Total 200 ml 200 ml 350 ml 200 ml Output Urine Total 900 ml 500 ml # Voids 4 # Bowel Movements 1 Result Diagram: 04/01/17 0353 03/31/17 0705 Objective Remarks Left upper extremity: Clean dry dressings intact. Mild swelling to proximal humerus. She has intact sensation of the radial ulnar median nerve distributions with good capillary refills. She can fully extend her fingers and make a fist. Right hip reveals clean dry dressings intact. Swelling is minimal. No erythema or drainage. Assessment & Plan Assessment and Plan Orly has positive cultures from left humerus fracture site. Infectious disease consult is for IV antibiotics--will likely need 6-8 weeks of IV antibiotics followed by oral antibiotics until fracture healed Occupational therapy for passive range of motion Physical therapy for ambulation Case management to assist in home IV antibiotic treatment Once antibiotic treatments are established and an outpatient antibiotics arranged discharge may be progressed will hopefully progress to home today or tomorrow pending Infectious Dz and antibiotic arrangements El Cool Apr 02, 2017 06:56
[2017-04-02 08:00] VITALS: BP 135/65; PULSE 73; RESP 21; TEMP 96.9; O2SAT 95
[2017-04-02] MEDS: FORTEO 20 MCG SQ SCH (08:40)
[2017-04-02] MEDS: DOCUSATE SODIUM 50 MG/SENNA 8.6 MG TAB PO SCH ×2 (08:43→21:06)
[2017-04-02] MEDS: FUROSEMIDE 20 MG TAB PO SCH (08:43)
[2017-04-02] MEDS: PANTOPRAZOLE SOD 20 MG DELAYED RELEASE TAB PO SCH (08:43)
[2017-04-02] MEDS: SODIUM CHLORIDE 0.9% FLUSH 10 ML FLUSH IV FLUSH SCH ×2 (08:44→20:51)
[2017-04-02] MEDS: CITALOPRAM HYDROBROMIDE 40 MG TAB PO SCH (08:44)
[2017-04-02] MEDS: CEFEPIME INJ 2,000 MG in SODIUM CHLORIDE 0.9% INJ 100 ML IV SCH ×2 (11:06→23:56)
[2017-04-02 11:45] VITALS: BP 151/59; PULSE 80; RESP 19; TEMP 96.9; O2SAT 96
--- NOTE | 2017-04-02 14:25 | HHI.PR ---
Subjective Remarks Patient reports she is feeling better. Pain is better controlled. Objective Vitals Vital Signs Date Time Temp Pulse Resp B/P (MAP) Pulse Ox O2 Delivery O2 Flow Rate FiO2 04/02/17 11:45 96.9 80 19 151/59 (89) 96 04/02/17 08:00 96.9 73 21 135/65 (88) 95 04/02/17 00:41 98.8 76 16 145/65 (91) 93 04/01/17 20:00 98.7 82 16 122/60 (80) 92 04/01/17 16:00 97.1 75 16 117/59 (78) 91 I/O 04/01/17 04/01/17 04/01/17 04/02/17 04/02/17 04/02/17 07:00 15:00 23:00 07:00 15:00 23:00 Intake Total 200 ml 200 ml 850 ml 200 ml 120 ml Output Total 900 ml 500 ml Balance -700 ml 200 ml 850 ml -300 ml 120 ml Intake Oral 500 ml 120 ml IV Total 200 ml 200 ml 350 ml 200 ml Output Urine Total 900 ml 500 ml # Voids 4 # Bowel Movements 1 Result Diagram: 04/01/17 0353 03/31/17 0705 Objective Remarks GENERAL: This is a well-nourished, well-developed patient, in no apparent distress. CARDIOVASCULAR: Normal rate and regular rhythm without murmurs, gallops, or rubs. RESPIRATORY: Good respiratory efforts. Breath sounds equal and clear to auscultation bilaterally. GASTROINTESTINAL: Abdomen soft, non-tender, non-distended. Normal active bowel sounds MUSCULOSKELETAL: Left shoulder is in a sling. Postoperative dressing appear intact. Neurovascularly intact at the hand and fingers. NEURO: Alert & Oriented x4 to person, place, time, situation. Moves all ext x4 PSYCH: Appropriate mood and affect. 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 Intraoperative cultures growing gram-positive rods. CRP and ESR elevated. Patient admitted for IV antibiotics and further workup. -Orthopedics and Infectious disease following. Antibiotics changed to cefepime , Flagyl, and vancomycin. - Follow blood cultures and further ID of the wound culture. Preliminary gram- positive on the culture. - Pain control. GI prophylaxis: Stool softener PRN constipation. DVT PPx: Heparin Discharge Planning DC pending further ID of wound cultures and final recs from ID. Will likely need prolonged IV Abx at home. Rafa Toro MD Apr 02, 2017 14:25
[2017-04-02 16:00] VITALS: BP 153/70; PULSE 74; RESP 20; TEMP 98.1; O2SAT 95
[2017-04-02] MEDS ORDERED: PILL SPLITTER OTHER PRN (16:00)
[2017-04-02 20:00] VITALS: BP 123/60; PULSE 81; RESP 20; TEMP 97.6; O2SAT 93
[2017-04-02] MEDS ORDERED: PHARMACY ORDERED LAB ONE (21:45)
[2017-04-02] MEDS: VANCOMYCIN 1,000 MG/NS 250 ML IV SCH ×2 (22:00)
[2017-04-03] VITALS: BP 126/63; PULSE 72; RESP 20; TEMP 97.6; O2SAT 93
[2017-04-03 04:00] VITALS: BP 127/60; PULSE 68; RESP 20; TEMP 97.6; O2SAT 93
[2017-04-03] MEDS: HEPARIN SODIUM - SQ 10,000 UNITS/ML VIAL SQ SCH (05:06)
[2017-04-03 08:00] VITALS: BP 154/70; PULSE 73; RESP 19; TEMP 96.9; O2SAT 95
[2017-04-03] MEDS: ONDANSETRON HCL 4 MG/2 ML VIAL IVP PRN ×2 (08:10→14:39)
[2017-04-03] MEDS ORDERED: VANCOMYCIN 1,000 MG/NS 250 ML IV SCH ×4 (09:00→10:00)
[2017-04-03] MEDS: SODIUM CHLORIDE 0.9% FLUSH 10 ML FLUSH IV FLUSH SCH (09:32)
[2017-04-03] MEDS: metroNIDAZOLE 500 MG INJ 100 ML IV SCH (09:32)
[2017-04-03] MEDS: FUROSEMIDE 20 MG TAB PO SCH (09:32)
[2017-04-03] MEDS: DOCUSATE SODIUM 50 MG/SENNA 8.6 MG TAB PO SCH (09:33)
[2017-04-03] MEDS: PANTOPRAZOLE SOD 20 MG DELAYED RELEASE TAB PO SCH (09:33)
[2017-04-03] MEDS: CITALOPRAM HYDROBROMIDE 40 MG TAB PO SCH (09:33)
[2017-04-03] MEDS: FORTEO 20 MCG SQ SCH (10:45)
--- NOTE | 2017-04-03 10:48 | HHI.IDPN ---
Subjective Subjective Remarks Patient is a 76-year-old female, who sustained a fracture to her left humerus September 2015. She was hospitalized at [facility] at that time, and underwent surgical repair all for fracture. According to the patient since after that surgery, he had persistent pain in her left upper arm. She mentioned that x- rays were done, and it was showing some slow healing of the fracture. The pain however was persistent, and she underwent CT of the left upper extremity September 2016 and 80 showing nonunion of the fracture. She went to surgery again September [address] [place] [address], and underwent ORIF, and iliac bone crest grafting. There was no improvement and she continued to have pain, so another CT was done either January on February, and it is showing nonunion of the fracture again. 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 Gram stain was negative. She was discharged home March 30, and apparently the culture that day a showing gram-positive dominique in the anaerobic bottle. Patient was called in and was admitted to the hospital for further evaluation and treatment. She has not had any fever or chills or sweats. She has not had any procedure done in the last year and a half. She had a cap on one of her tooth, last December 2016, and she took some antibiotics for that procedure. Infectious disease consultation has been requested to evaluate the patient. 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 Possible Bacillus or Corynebacterium No fever No complaints ESR 47 CRP 8.3 Antibiotics Vanco Flagyl cefepime Current Medications Medications (Trade) Dose Ordered Sig/Tarik Route Start Time Stop Time Status Last Admin (Narcan Inj) 0.4 mg UNSCH PRN IV PUSH 03/30/17 18:15 (Milk Of Magnesia Liq) 30 ml Q12H PRN PO 03/30/17 18:15 (NS Flush) 2 ml UNSCH PRN IV FLUSH 03/30/17 19:30 (NS Flush) 2 ml BID IV FLUSH 03/30/17 21:00 04/03/17 09:32 (Zofran Inj) 4 mg Q6H PRN IVP 03/30/17 19:30 04/03/17 08:10 (Stephanie-Colace) 1 tab BID PO 03/30/17 21:00 04/03/17 09:33 (Senokot) 17.2 mg Q12H PRN PO 03/30/17 19:30 (Dulcolax Supp) 10 mg DAILY PRN RECTAL 03/30/17 19:30 (Lactulose Liq) 30 ml DAILY PRN PO 03/30/17 19:30 (CeleXA) 40 mg DAILY PO 03/31/17 09:00 04/03/17 09:33 (Lasix) 20 mg DAILY PO 03/31/17 09:00 04/03/17 09:32 (Restoril) 15 mg HS PRN PO 03/30/17 19:30 04/02/17 23:57 (Protonix) 20 mg DAILY PO 03/31/17 09:00 04/03/17 09:33 (Duoneb Neb) 1 ampule Q4HR NEB PRN NEB 03/30/17 20:15 Pharmacy Profile Note 0 ml @ 0 mls/hr UNSCH OTHER 03/30/17 20:15 Cefepime HCl 2000 mg/Sodium Chloride 100 ml @ 200 mls/hr Q12H IV 03/31/17 11:00 04/02/17 23:56 (Dilaudid Pf Inj) 1 mg Q4H PRN IV PUSH 03/31/17 12:00 (Heparin Inj) 5,000 units Q12H SQ 03/31/17 18:00 04/03/17 05:06 Patient Own Medication PT OWN MED: FORTEO... DAILY SQ 04/01/17 09:00 04/02/17 08:40 (Benadryl) 25 mg Q4H PRN PO 04/01/17 10:30 04/01/17 10:52 (Roxicodone) 15 mg Q4H PRN PO 04/02/17 16:00 04/03/17 08:11 (Pill Splitter) 1 ea UNSCH PRN OTHER 04/02/17 16:00 Metronidazole 100 ml @ 100 mls/hr Q6H IV 04/02/17 21:00 04/03/17 09:32 Miscellaneous Information SPECIFIC LAB TO BE NOBEL... ONCE ONCE .XX 04/04/17 08:45 04/04/17 08:46 Vancomycin HCl 1000 mg/Sodium Chloride 250 ml @ 250 mls/hr Q12H IV 04/03/17 09:00 Lines PIV Past Medical History Anxiety, GERD Essential tremors Past Surgical History Appendectomy Cataract Surgery Hysterectomy Rotator cuff repair on the right 2011 Fracture left humerus, first opening reduction internal fixation done September 2015, repeat surgery with ORIF and iliac crest bone grafting done September 2016 Most recent surgery March 27, 2017 with removal of hardware, ORIF with iliac crest bone grafting Allergies: Coded Allergies: NSAIDS (Non-Steroidal Anti-Inflamma (Verified Allergy, Unknown, RASH, ) Penicillins (Verified Allergy, Unknown, HIVES, 03/31/17) Has tolerated Keflea and IV Ancef Sulfa (Sulfonamide Antibiotics) (Verified Allergy, Unknown, HIVES, ) acetaminophen (Verified Allergy, Unknown, NAUSEA, 03/31/17) codeine (Verified Allergy, Unknown, NAUSEA, 03/31/17) meperidine (Verified Allergy, Unknown, NAUSEA, 03/31/17) morphine (Verified Allergy, Unknown, VIOLENT NAUSEA, 03/31/17) Objective . Vital Signs Date Time Temp Pulse Resp B/P (MAP) Pulse Ox O2 Delivery O2 Flow Rate FiO2 04/03/17 08:00 96.9 73 19 154/70 (98) 95 04/03/17 04:00 97.6 68 20 127/60 (82) 93 04/03/17 00:00 97.6 72 20 126/63 (84) 93 04/02/17 20:00 97.6 81 20 123/60 (81) 93 04/02/17 16:00 98.1 74 20 153/70 (97) 95 04/02/17 11:45 96.9 80 19 151/59 (89) 96 04/03/17 04/03/17 04/04/17 14:59 22:59 06:59 Intake Total 120 ml Balance 120 ml Intake Oral 120 ml Physical Exam GENERAL: Patient is a well-nourished, well-developed female, awake and alert , not in respiratory distress. SKIN: Warm and dry. No generalized rash, no ecchymoses and no evidence of embolic lesions. HEAD: Atraumatic. Normocephalic. No temporal wasting, or tenderness. EYES: Cheriton conjunctiva. No petechia or hemorrhage. Pupils equal, round and reactive to light. Extraocular movements full and intact. No scleral icterus. No injection or drainage. EARS, NOSE AND THROAT: Nose without bleeding or purulent nasal discharge. No sinus tenderness. Mucous membranes pink and moist. No oral lesions noted. No exudate. No oral thrush. NECK: Trachea midline. Supple and not tender, no meningeal signs . No lymphadenopathy. CARDIOVASCULAR: Regular rate and rhythm. No murmurs, rubs or gallops heard RESPIRATORY: Clear to auscultation. Breath sounds equal bilaterally. No rales , wheezing or rhonchi ABDOMEN: Soft, non-tender, nondistended. Bowel sounds present and normoactive. No guarding. No rebound. No organomegaly. Dry incision on RLQ EXTREMITIES: No clubbing, cyanosis, or edema BLE. No joint effusion, has good ROM BLE. No calf tenderness. Well perfused and warm. LUE - has dry intact dressing, dry incision on shoulder and upper arm NEUROLOGICAL: Awake and alert. Cranial nerves grossly intact. Motor grossly within normal limits. PSYCHIATRIC: Normal affect, calm and cooperative. 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, possiboe Bacillus, ?conrynebacterium L humerus fracture, has had 2 surgical Rx for non-union RECOMMENDATION Stop Cefepime Stop Flagyl Continue IV Vanco PICC CM to arrange for home IV Abx Course of RX can be determined as outpatient - complete course of IV then monitor - complete IV, then suppression for short time then observe D/C in AM once arrangement made Explained plan to the patient - spent about 30 minutes explaining to her plan, and answered all her other questions Communicated with Dr Rivas about follow-up with her when partient gets D/C Spoke with Daniel WILLOUGHBY (ortho) D/W Lori Rodríguez MD Apr 03, 2017 10:48
--- NOTE | 2017-04-03 11:05 | HHI.FF ---
cc: Rina Rivas MD, Dr Infusion Therapy Location of Infusion Therapy: Home Health Care IV Infusion Order Patient Information Patient Weight 69.3 kg Diagnosis: Diagnosis Infection L humerus with hardware in place Coded Allergies: NSAIDS (Non-Steroidal Anti-Inflamma (Verified Allergy, Unknown, RASH, ) Penicillins (Verified Allergy, Unknown, HIVES, 03/31/17) Has tolerated Keflea and IV Ancef Sulfa (Sulfonamide Antibiotics) (Verified Allergy, Unknown, HIVES, ) acetaminophen (Verified Allergy, Unknown, NAUSEA, 03/31/17) codeine (Verified Allergy, Unknown, NAUSEA, 03/31/17) meperidine (Verified Allergy, Unknown, NAUSEA, 03/31/17) morphine (Verified Allergy, Unknown, VIOLENT NAUSEA, 03/31/17) Administer Medication Vancomycin 1 gram IV q 12 hours Stop Treatment: May 14, 2017 Additional Information Additional Instructions [x] Peripheral flush and dressing changes per protocol [x] Implanted port and central multicut line operator: * Implanted port: 10 ml Normal Saline followed by 5 ml Heparin 100 units/ml Heparin flush after each use and monthly to maintain. [] May leave port accessed during therapy. [] May leave peripheral site accessed for duration of therapy. [x] If patient has SOB or respiratory distress, check oxygen saturation. If less than 90% or clinical signs of respiratory distress, administer oxygen at 2 L/min. via nasal cannula and notify physician. [x] Anaphylaxis/Reaction orders: * Stop infusion. * Keep IV line open with saline flush. * Notify physician. * Monitor vital signs every 15 minutes until symptoms resolve. * Check Oxygen saturation; Oxygen at 2 L/min. via nasal cannula if less than 90% or clinical signs of respiratory distress. * Administer diphenhydramine (Benadryl) 25 mg IV STAT, (unless patient has received as pre-med). May repeat once, if necessary. * Solu-Cortef 250 mg IVP over 30-60 seconds, use 100 mg vials for each dissolution. * Epinephrine (1mg/1 ml) 0.3 mg subcutaneously or IVP now with any signs of respiratory distress. * Check with physician for new additional pre-med orders if patient is re- challenged or re-treated. [x] May remove PICC line when treatment complete, after confirming with Physician. [x] If the patient is admitted to the hospital, the ED, or transferred via [facility] , complete transfer form including medication reconciliation order sheet. Laboratory Tests Weekly Labs: CBC w/diff, Creatinine, Vancomycin Trough (Labs every Sunday - copy to me and Dr Rivas) Additional Information Please do Vancomycin trough April 06 morning dose Have pharmacy assist with Vanco dosing - aim for trough between 15-20 DimayLori gavin MD Apr 03, 2017 11:05
[2017-04-03 12:00] VITALS: BP 138/65; PULSE 74; RESP 19; TEMP 97; O2SAT 95
--- NOTE | 2017-04-03 12:19 | HHI.FF ---
Face to Face Verification Diagnosis: (1) Closed left humeral fracture (2) Postoperative infection Occupational Therapy Left UE Weight Bearing: Non WB Left UE Range of Motion: Pendular Nursing Nursing: Other (PICC line care and antibiotic administration) Dressing Changes: Daily dressing change, Xeroform, Coverderm/Primapore Additional Instructions Daily dressing changes to left humerus as well as right iliac crest bone graft site I have seen patient Orly Jimenez on 04/03/17. My clinical findings support the need for the requested home health care services because: Limited ability to care for self I certify that my clinical findings support that this patient is homebound because: Post-op weakness José Moe Jr. Apr 03, 2017 12:19
--- NOTE | 2017-04-03 13:12 | HHI.PR ---
Subjective Remarks Patient reports she is feeling better. Afebrile. Looking forward to go home tomorrow. Pain is better controlled. Objective Vitals Vital Signs Date Time Temp Pulse Resp B/P (MAP) Pulse Ox O2 Delivery O2 Flow Rate FiO2 04/03/17 12:00 97.0 74 19 138/65 (89) 95 04/03/17 08:00 96.9 73 19 154/70 (98) 95 04/03/17 04:00 97.6 68 20 127/60 (82) 93 04/03/17 00:00 97.6 72 20 126/63 (84) 93 04/02/17 20:00 97.6 81 20 123/60 (81) 93 04/02/17 16:00 98.1 74 20 153/70 (97) 95 I/O 04/02/17 04/02/17 04/02/17 04/03/17 04/03/17 04/03/17 07:00 15:00 23:00 07:00 15:00 23:00 Intake Total 200 ml 220 ml 1400 ml 790 ml 120 ml Output Total 500 ml 1000 ml Balance -300 ml 220 ml 400 ml 790 ml 120 ml Intake Oral 120 ml 1200 ml 340 ml 120 ml IV Total 200 ml 100 ml 200 ml 450 ml Output Urine Total 500 ml 1000 ml # Voids 2 # Bowel Movements 2 Result Diagram: 04/01/17 0353 03/31/17 0705 Objective Remarks GENERAL: This is a well-nourished, well-developed patient, in no apparent distress. CARDIOVASCULAR: Normal rate and regular rhythm without murmurs, gallops, or rubs. RESPIRATORY: Good respiratory efforts. Breath sounds equal and clear to auscultation bilaterally. GASTROINTESTINAL: Abdomen soft, non-tender, non-distended. Normal active bowel sounds MUSCULOSKELETAL: Left shoulder is in a sling. Postoperative dressing appear intact. Neurovascularly intact at the hand and fingers. NEURO: Alert & Oriented x4 to person, place, time, situation. Moves all ext x4 PSYCH: Appropriate mood and affect. 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 Intraoperative cultures growing gram-positive rods. CRP and ESR elevated. Patient admitted for IV antibiotics and further workup. -Orthopedics and Infectious disease following. Wound cultures with possible Bacillus, ?corynebacterium. Antibiotics to vancomycin per ID. Patient is to be discharged on same. PICC line ordered. Home IV infusion ordered per ID GI prophylaxis: Stool softener PRN constipation. DVT PPx: Heparin Discharge Planning Plan for discharge home with IV infusion in AM. Rafa Toro MD Apr 03, 2017 13:12
--- NOTE | 2017-04-03 14:56 | RADRPT ---
EXAM DATE/TIME: 04/03/2017 14:39 [facility] COMPARISON: No previous studies available for comparison. INDICATIONS : Post PICC placement. MEDICAL HISTORY : None. SURGICAL HISTORY : None. ENCOUNTER: Initial ACUITY: 1 day PAIN SCORE: 0/10 LOCATION: Bilateral chest FINDINGS: A single view of the chest demonstrates the lungs to be symmetrically aerated without evidence of mas s, infiltrate or effusion. The cardiomediastinal contours are unremarkable. Osseous structures are intact. CONCLUSION: Normal examination. Right-sided PICC line. Jesús Haque MD on April 03, 2017 at 14:53 Board Certified Radiologist. This report was verified electronically.
--- NOTE | 2017-04-03 15:40 | HHI.DS ---
Discharge Summary Admission Date Mar 30, 2017 at 17:54 Admitting Diagnosis Post operative infection. (1) Postoperative infection ICD Code: T81.4XXA - Infection following a procedure, initial encounter Status: Acute (2) Left shoulder pain ICD Code: M25.512 - Pain in left shoulder Status: Acute (3) Dehydration ICD Code: E86.0 - Dehydration Brief History - From Admission This is a 76-year-old female with a PMH of Anxiety who was sent to the ER by Dr. Cr's office for postoperative infection. S/p ORIF Left Humerus by Dr. Cr on 03/27/17, intraoperative cultures positive for gram positive rods. Denies fever, chills. Sent to ER by Dr. Cr for admission and IV Abx. Pt w / no significant complaints except for left shoulder pain. On arrival, BP 92/60 , HR 78, O2 sat 92% on RA, Afebrile. CBC unremarkable. Chemistry essentially unremarkable except for GFR 73. Gram Stain 03/27/17 w/ Gram Positive Rods. S/ p Blood Cultures and Azactam in ER. CBC/BMP: 04/01/17 0353 03/31/17 0705 Significant Findings Laboratory Tests Test 04/01/17 03:53 04/02/17 22:15 Red Blood Count 3.14 MIL/MM3 (4.00-5.30) Hemoglobin 9.8 GM/DL (11.6-15.3) Hematocrit 28.7 % (35.0-46.0) Vancomycin Level Trough 3.5 MCG/ML (5.0-10.0) PE at Discharge GENERAL: This is a well-nourished, well-developed patient, in no apparent distress. CARDIOVASCULAR: Normal rate and regular rhythm without murmurs, gallops, or rubs. RESPIRATORY: Good respiratory efforts. Breath sounds equal and clear to auscultation bilaterally. GASTROINTESTINAL: Abdomen soft, non-tender, non-distended. Normal active bowel sounds MUSCULOSKELETAL: Left shoulder is in a sling. Postoperative dressing appear intact. Neurovascularly intact at the hand and fingers. NEURO: Alert & Oriented x4 to person, place, time, situation. Moves all ext x4 PSYCH: Appropriate mood and affect. Pt Condition on Discharge: Good Discharge Disposition: Disch w/ Home Health Serv Discharge Instructions DIET: Follow Instructions for: As Tolerated, No Restrictions Activities you can perform: See Additionl Instruction Other Activity Instructions: per Orthopedics Rafa Toro MD Apr 03, 2017 15:40
[2017-04-04] MEDS ORDERED: PHARMACY ORDERED LAB ONE (08:45)
== END 2017-04-03 16:44 | disposition home health service (06) | DRG 857 ==
LOC: NEPE 15:05 → NEDA 17:54 → N07A 19:00
PROVIDERS: ADMIT Family Medicine; ATTEND Family Medicine
PROC: 0PSG04Z Reposition Left Humeral Shaft with Internal Fixation Device, Open Approach (ICD-10-PCS; principal; 2017-03-27)
PROC: 0PPG04Z Removal of Internal Fixation Device from Left Humeral Shaft, Open Approach (ICD-10-PCS; 2017-03-27)
PROC: 0QB20ZZ Excision of Right Pelvic Bone, Open Approach (ICD-10-PCS; 2017-03-27)
PROC: 05HB33Z Insertion of Infusion Device into Right Basilic Vein, Percutaneous Approach (ICD-10-PCS; 2017-04-03)
DX: T81.4XXA Infection following a procedure, initial encounter (principal); S42.302K Unspecified fracture of shaft of humerus, left arm, subsequent encounter for fracture with nonunion; E86.0 Dehydration; F41.9 Anxiety disorder, unspecified; K21.9 Gastro-esophageal reflux disease without esophagitis; G25.0 Essential tremor; Z88.0 Allergy status to penicillin; X58.XXXD Exposure to other specified factors, subsequent encounter
CPT/HCPCS: 71010; 80053; 80202; 81001; 83605; 85025; 85027; 85652; 86140; 87040; 96374; 96375; J0692; J1170; J1644; J2405; J3370; J7030; J7050

== ENCOUNTER 2017-04-18 10:52 | Emergency (ER) | payer MEDICARE ==
[~2017-04-18 10:52] MED LIST changes: -DILA2TAB4 PO
[2017-04-18 10:53] VITALS: BP 176/83; PULSE 73; RESP 12; TEMP 97.9; O2SAT 97
[2017-04-18] MEDS ORDERED: ALTEPLASE RECOMBINANT 2 MG VIAL INTRACATH ONE (12:45)
--- NOTE | 2017-04-18 12:53 | PD ---
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 States last night she tried to administer vancomycin at home and was unable to get it to push through. She called her home health nurse who told her it could wait until the morning. Home health nurse came in the morning and tried to push the medicine but was unable to get it to flow. She recommended the patient come to the emergency room. Patient denies any other complaints. Denies chest pain or shortness of breath. PFSH Past Medical History Asthma: No Autoimmune Disease: No Anxiety: Yes Depression: Yes Cancer: No Cardiovascular Problems: No COPD: No Diabetes: Yes Endocrine: No Gastrointestinal Disorders: Yes (REFLUX) GERD: Yes Genitourinary: No Hepatitis: No Hiatal Hernia: No Immune Disorder: No Musculoskeletal: No Neurologic: No Psychiatric: Yes Reproductive: No Respiratory: Yes Sleep Apnea: No Thyroid Disease: No Ulcer: No Menopausal: Yes Past Surgical History Abdominal Surgery: Yes (Appendix removed) AICD: No Appendectomy: Yes Arteriovenous Shunt: No Cardiac Surgery: No Ear Surgery: No Endocrine Surgery: No Eye Surgery: No Genitourinary Surgery: No Gynecologic Surgery: Yes (Hysterectomy) Hysterectomy: Yes Insulin Pump: No Joint Replacement: Yes (Right shoulder replacement) Oral Surgery: Yes (Bilateral cataracts removed) Pacemaker: No Thoracic Surgery: No Other Surgery: Yes Social History Alcohol Use: No Tobacco Use: No Substance Use: No Allergies-Medications (Allergen,Severity, Reaction): Coded Allergies: NSAIDS (Non-Steroidal Anti-Inflamma (Verified Allergy, Unknown, RASH, 04/18) Penicillins (Verified Allergy, Unknown, HIVES, 04/18/17) Has tolerated Keflea and IV Ancef Sulfa (Sulfonamide Antibiotics) (Verified Allergy, Unknown, HIVES, 04/18/17 ) acetaminophen (Verified Allergy, Unknown, NAUSEA, 04/18/17) codeine (Verified Allergy, Unknown, NAUSEA, 04/18/17) meperidine (Verified Allergy, Unknown, NAUSEA, 04/18/17) morphine (Verified Allergy, Unknown, VIOLENT NAUSEA, 04/18/17) Reported Meds & Prescriptions Reported Meds & Active Scripts Active Zofran (Ondansetron HCl) 4 Mg Tab 4 Mg PO Q6HR PRN 7 Days Endocet (Oxycodone-Acetaminophen) 10-325 mg Tab 1 Tab PO Q4H PRN Reported Temazepam 15 Mg Cap 15 Mg PO HS PRN Stool Softener (Docusate Sodium) 100 Mg Cap 200 Cap PO DAILY Omeprazole 20 Mg Tab 20 Mg PO DAILY Furosemide 20 Mg Tab 20 Mg PO DAILY Citalopram (Citalopram Hydrobromide) 40 Mg Tab 40 Mg PO DAILY Review of Systems Except as stated in HPI: all other systems reviewed are Neg Physical Exam Narrative GENERAL: Well-nourished, well-developed female in no acute distress. Afebrile. Ambulatory. SKIN: Focused skin assessment warm/dry. PICC line in place in the right arm. No surrounding erythema. HEAD: Normocephalic. EYES: No scleral icterus. No injection or drainage. NECK: Supple, trachea midline. No JVD or lymphadenopathy. CARDIOVASCULAR: Regular rate and rhythm without murmurs, gallops, or rubs. RESPIRATORY: Breath sounds equal bilaterally. No accessory muscle use. MSK: Left arm tender to palpation around surgical site. Mild erythema to the distal surgical scar. No significant edema. Data Data Last Documented VS Vital Signs Date Time Temp Pulse Resp B/P (MAP) Pulse Ox O2 Delivery O2 Flow Rate FiO2 04/18/17 10:53 97.9 73 12 176/83 (114) 97 Orders Orders Cathflo Activase Inj (Cathflo Activase I (04/18/17 12:45) [facility] [place] Medical Decision Making Medical Screen Exam Complete: Yes Emergency Medical Condition: Yes Medical Record Reviewed: Yes Differential Diagnosis Surgical site infection, osteomyelitis, humerus fracture, PICC line occlusion Narrative Course 76-year-old female presents to the emergency room for evaluation of occluded PICC line. States she tried to inject her vancomycin last night and was unable to. Her home health nurse came this morning and also could not get medication to flow. She recommended patient come to the ED. Physical exam reveals PICC line with some blood in the tubing. No surrounding erythema. Patient denies chest pain or shortness of breath. 2 mg of cathflow was administered. After waiting 30 minutes, the nurse had difficulty pushing the medication. Vascular access team was called and was immediately able to push the medication without difficulty. PICC line olya and flushed easily. Patient is stable for discharge. Diagnosis Primary Impression: Occluded PICC line Qualified Codes: T82.898A - Other specified complication of vascular prosthetic devices, implants and grafts, initial encounter Referrals: Primary Care Physician Additional Instructions: Follow-up with a primary care physician. Return to the emergency room for worsening symptoms. Disposition: 01 DISCHARGE HOME Condition: Stable Teresa Nguyen Apr 18, 2017 12:53
== END 2017-04-18 14:27 | disposition home or self-care (01) ==
LOC: NEPK 10:52
DX: T82.898A Other specified complication of vascular prosthetic devices, implants and grafts, initial encounter (principal)
CPT/HCPCS: 36593; 99284; J2997

== ENCOUNTER → 2017-08-21 | Day surgery (SDC) | payer MEDICARE ==
[~2017-08-21] VITALS: Ht 157.5 cm; Wt 62.5 kg
[~2017-08-21] MED LIST changes: +ACETAMINOPHEN 1000 MG/100 ML 0 ML IV ONE; +APREPITANT 40 MG CAP ONE; +BIOT10TA PO; +BUPIVACAINE/EPINEPHRINE 0.25% 50 ML VIAL ONE; +CHLORHEXIDINE GLUCONATE 2 % 1 PACK (2 CLOTHS) TOPICAL PRN; +CHLORHEXIDINE GLUCONATE 4% SOLN 120 ML BTL TOPICAL SCH; +DEXAMETHASONE SOD PHOS 4 MG/ML VIAL IV ONE; +DO NOT ADM ANY ANTICOAGULANT DRUGS PRN; -ENDO10TA8 PO; +FAMOTIDINE 20 MG/2 ML VIAL ONE; +GENTAMICIN SULFATE 80 MG/2 ML VIAL ONE; +HYDROmorphone HCL PF 0.5 MG/0.5 ML SYRINGE IV PUSH PRN; +KETAMINE HCL 50 MG/5 ML SYRINGE ONE; +LACTATED RINGER'S 1000 ML IV PRN; +LACTCAP8 PO; +LIDOCAINE HCL 1% PF 5 ML SYRINGE OTHER ONE; +METF500T PO; +METOPROLOL TARTRATE 25 MG TAB PO PRN; +MIDAZOLAM HCL 2 MG/2 ML VIAL ONE; -OMEP20TA93 PO; +ONDANSETRON HCL 4 MG/2 ML VIAL IV ONE; +ONDANSETRON HCL 4 MG/2 ML VIAL IV PUSH PRN; +OXYC-392 PO; +POVIDONE IODINE 5% (ANTISEPSIS KIT) 4 APPLICATIONS EACH NARE PRN; +PROPOFOL 200 MG/20 ML AMP IV ONE; +SCOPOLAMINE 1.5 MG PATCH ONE; +SODIUM CHLORID 0.9% 500 ML IV PRN; +SODIUM CHLORIDE 0.9% FLUSH 10 ML FLUSH IV FLUSH PRN; +SODIUM CHLORIDE 0.9% FLUSH 10 ML FLUSH IV FLUSH SCH; +TOBRAMYCIN 1200 MG VIAL (for ortho/sterile core) OTHER ONE; +TRAZ50TA12 PO; +VANCOMYCIN HCL 1000 MG VIAL ONE; -ZOFR4TAB PO; +ceFAZolin INJ 1,000 MG VIAL ONE; +ePHEDrine/NS 25 MG/5 ML SYRINGE IV ONE
[2017-08-21] MEDS: VANCOMYCIN HCL 1000 MG VIAL ONE (09:02)
--- NOTE | 2017-08-21 09:26 | PD.OP ---
cc: Raul Cr MD Operative Report Date of Surgery: Aug 21, 2017 Preoperative Diagnosis: Left humerus infection with retained hardware Postoperative Diagnosis: Procedure: Removal of deep hardware, irrigation debridement of left humerus, placement of antibiotic beads Surgeon: Raul Cr Lead Radiation Therapist(s): EVENS Aguilar PA-C The surgical procedure was assisted by my physician family services assistant. My P.A. presence was necessary throughout this case for the manipulation and positioning of the surgical extremity. My P.A. was assisting me throughout the duration of this procedure. The skill set of a physician family services assistant was medically necessary to complete this procedure. During the surgical case the surgical appliances salesperson was working at the back table and the physician family services assistant was directly assisting me. Operation and Findings: Patient was seen and evaluated preoperatively. Treatment options were discussed regarding left humerus infection with retained hardware. After detailed discussion of risk and benefits of procedure patient wishes to proceed with surgery for removal of hardware, irrigation debridement of humerus, and placement of antibiotic beads. Risks of surgery include bleeding, infection, nonunion, malunion, painful hardware, loss of motion of shoulder and elbow, weakness and numbness of arm, as well as medical competitions including blood clots stroke and . Patient was brought to operating room and placed on the OR table. GETA was administered by anesthesiologist. Operative arm and shoulder were prepped with alcohol followed by Hibiclens and draped usual sterile fashion. Timeout procedure was performed. IV antibiotics were held until cultures were obtained. A standard anterior approach was utilized. Subcutaneous tissues was dissected with Bovie. Cephalic vein was identified and protected. Proximally the deltopectoral interval was opened. Distally the brachialis was split. There was dense scar tissue secondary to the multiple surgeries. The hardware was identified. At this point attention was turned to hardware removal. Screwdrivers were used to loosen the screws. All screws were now removed. An elevator was now used to remove the plate. Fluoroscopy confirmed removal of all hardware. The fracture appeared to be healed under fluoroscopy with no evidence of motion at the fracture site. Next attention was turned to debridement of the humerus. Curettes and rongeurs were used to debride the bone. Each of the screw holes was debrided. Soft tissue and bone specimen was obtained and sent as tissue culture. After thorough debridement of soft tissue and bone the wound was thoroughly irrigated with pulsatile lavage. There was no gross visible evidence of infection. Next attention was turned antibiotics spacer placement. 10 cc of stimulant bone cement was mixed with 1 g of vancomycin and 1 g of tobramycin. Once the beads were set the beads were placed into the open wound around the humerus and previous site of infection. At this point attention was turned to wound closure Fascia was closed with # PDS, subcutaneous tissues closed with 3-0 PDS , and skin was closed with morelia. Sterile dressings were applied. Needle and sponge counts were correct. Patient was placed into a sling, and then transferred to recovery room in stable condition Raul Cr MD Aug 21, 2017 09:26
[2017-08-21 12:00] VITALS: BP 127/64; PULSE 76; RESP 18; TEMP 97.8; O2SAT 96
--- NOTE | 2017-08-21 12:08 | RADRPT ---
EXAM DATE/TIME: 08/21/2017 08:51 [facility] COMPARISON: HUMERUS LEFT (MIN 2VWS), March 27, 2017, 9:58. INDICATIONS : Hardware removal of left humerus. MEDICAL HISTORY : Unobtainable. SURGICAL HISTORY : Unobtainable. ENCOUNTER: Subsequent ACUITY: 4 - 6 months PAIN SCORE: Non-responsive. LOCATION: Left humerus. FINDINGS: The patient is status post removal of hardware from the left humerus. No acute fracture or dislocatio n is noted. CONCLUSION: Status post removal of hardware from the left humerus without fracture or dislocation . Farn Levin MD on August 21, 2017 at 12:04 Board Certified Radiologist. This report was verified electronically.
== END | disposition home or self-care (01) ==
LOC: HSDC 05:49
PROVIDERS: ATTEND Orthopaedic Surgery Orthopaedic Trauma
DX: T84.611A Infection and inflammatory reaction due to internal fixation device of left humerus, initial encounter (principal); I10 Essential (primary) hypertension; E11.9 Type 2 diabetes mellitus without complications; Z79.84 Long term (current) use of oral hypoglycemic drugs
CPT/HCPCS: 01740; 11981; 20680; 73060; 76000; 87015; 87070; 87102; 87116; 87205; 87206; C1713; J0690; J1100; J1170; J1580; J2250; J2405; J3010; J3370; J7120; J8501; J0131

== ENCOUNTER 2017-09-24 10:02 | Inpatient (IN) | payer MEDICARE ==
[~2017-09-24] VITALS: Ht 157.5 cm; Wt 61.5 kg
[~2017-09-24 10:02] MED LIST changes: -ACETAMINOPHEN 1000 MG/100 ML 0 ML IV ONE; -APREPITANT 40 MG CAP ONE; -BUPIVACAINE/EPINEPHRINE 0.25% 50 ML VIAL ONE; -CHLORHEXIDINE GLUCONATE 2 % 1 PACK (2 CLOTHS) TOPICAL PRN; -CHLORHEXIDINE GLUCONATE 4% SOLN 120 ML BTL TOPICAL SCH; -DEXAMETHASONE SOD PHOS 4 MG/ML VIAL IV ONE; -DO NOT ADM ANY ANTICOAGULANT DRUGS PRN; -FAMOTIDINE 20 MG/2 ML VIAL ONE; -GENTAMICIN SULFATE 80 MG/2 ML VIAL ONE; -HYDROmorphone HCL PF 0.5 MG/0.5 ML SYRINGE IV PUSH PRN; -KETAMINE HCL 50 MG/5 ML SYRINGE ONE; -LACTATED RINGER'S 1000 ML IV PRN; -LIDOCAINE HCL 1% PF 5 ML SYRINGE OTHER ONE; -METOPROLOL TARTRATE 25 MG TAB PO PRN; -MIDAZOLAM HCL 2 MG/2 ML VIAL ONE; -ONDANSETRON HCL 4 MG/2 ML VIAL IV ONE; -ONDANSETRON HCL 4 MG/2 ML VIAL IV PUSH PRN; -POVIDONE IODINE 5% (ANTISEPSIS KIT) 4 APPLICATIONS EACH NARE PRN; -PROPOFOL 200 MG/20 ML AMP IV ONE; -SCOPOLAMINE 1.5 MG PATCH ONE; -SODIUM CHLORID 0.9% 500 ML IV PRN; -SODIUM CHLORIDE 0.9% FLUSH 10 ML FLUSH IV FLUSH PRN; -SODIUM CHLORIDE 0.9% FLUSH 10 ML FLUSH IV FLUSH SCH; -TOBRAMYCIN 1200 MG VIAL (for ortho/sterile core) OTHER ONE; -VANCOMYCIN HCL 1000 MG VIAL ONE; -ceFAZolin INJ 1,000 MG VIAL ONE; -ePHEDrine/NS 25 MG/5 ML SYRINGE IV ONE
[2017-09-24 10:05] VITALS: BP 195/81; PULSE 73; RESP 16; TEMP 97.4; O2SAT 99
--- NOTE | 2017-09-24 11:24 | RADRPT ---
EXAM DATE/TIME: 09/24/2017 10:44 [facility] COMPARISON: HUMERUS LEFT (MIN 2VWS), August 21, 2017, 8:51. INDICATIONS : Patient states left humeral pain. MEDICAL HISTORY : None. SURGICAL HISTORY : Left Humerus ENCOUNTER: Initial ACUITY: 2 days PAIN SCORE: 10/10 LOCATION: Left Humerus FINDINGS: Hardware has been removed from the left humerus. The fracture through the midshaft of the left humer us with minimal distraction no angulation. CONCLUSION: Hardware has been removed. Fracture midshaft humerus.. Jim Harvey MD FACR on September 24, 2017 at 11:15 Board Certified Radiologist. This report was verified electronically.
--- NOTE | 2017-09-24 11:27 | PD ---
HPI Chief Complaint: Injury Time Seen by Provider: 11:10 Travel History International Travel<30 days: No Contact w/Intl Traveler<30days: No Traveled to known affect area: No History of Present Illness HPI 77-year-old female presents to the emergency department for evaluation left humerus injury. Patient reports long history of issues with her left humerus. She states in September 2015 she fractured her humerus with multiple fractures. She had surgery done in September by Dr. Reyes. She then had to have a second surgery in September 2016 where they took part of her hip bone and placed a plate and rods in the left humerus. She then had to undergo another surgery in March [address] Ulloa. She states that she does have the plate and hardware removed [address] Ulloa. She states that she recently started physical therapy. Today she was lifting up a flashlight when she felt a pop and intense pain in her left humerus. She currently rates the pain 9/10, aching and throbbing that radiates down the arm. Patient states it feels just like her previous fracture. She reports increased pain with movement. She states that keeping the arm still help alleviate the pain. She states she cannot take pain medications not even Tylenol or anti-inflammatories. Patient is not on anticoagulants. She states she has not eaten today, but take a diet Pepsi this morning. Moderate severity. PFSH Past Medical History Asthma: No Autoimmune Disease: No Anxiety: Yes Depression: Yes Cancer: No Cardiovascular Problems: No COPD: No Diabetes: Yes Patient Takes Glucophage: Yes Endocrine: No GERD: Yes Genitourinary: No Hepatitis: No Hiatal Hernia: No Immune Disorder: No Implanted Vascular Access Dvce: Yes Musculoskeletal: Yes (hardware removal 08/29 to L humerus) Neurologic: No Psychiatric: Yes (depression) Reproductive: No Respiratory: No Sleep Apnea: No Thyroid Disease: No Ulcer: No Menopausal: Yes Past Surgical History Abdominal Surgery: Yes (Appendix removed) AICD: No Appendectomy: Yes Arteriovenous Shunt: No Body Medical Devices: hardware to L humerus Cardiac Surgery: No Ear Surgery: No Endocrine Surgery: No Eye Surgery: No Genitourinary Surgery: No Gynecologic Surgery: Yes (Hysterectomy) Hysterectomy: Yes Insulin Pump: No Joint Replacement: Yes (Right shoulder replacement) Oral Surgery: Yes (Bilateral cataracts removed) Pacemaker: No Thoracic Surgery: No Other Surgery: Yes Social History Alcohol Use: No Tobacco Use: No Substance Use: No Allergies-Medications (Allergen,Severity, Reaction): Coded Allergies: NSAIDS (Non-Steroidal Anti-Inflamma (Verified Allergy, Unknown, RASH, 09/24) Penicillins (Verified Allergy, Unknown, HIVES, 09/24/17) Has tolerated Keflea and IV Ancef Sulfa (Sulfonamide Antibiotics) (Verified Allergy, Unknown, HIVES, 09/24/17 ) acetaminophen (Verified Allergy, Unknown, NAUSEA, 09/24/17) codeine (Verified Allergy, Unknown, NAUSEA, 09/24/17) meperidine (Verified Allergy, Unknown, NAUSEA, 09/24/17) morphine (Verified Allergy, Unknown, VIOLENT NAUSEA, 09/24/17) Reported Meds & Prescriptions Reported Meds & Active Scripts Active Reported Probiotic (Lactobacillus Acidophilus) 10 Billion Cell Cap 1 Cap PO DAILY Biotin 10 Mg Tab 10 Mg PO DAILY Metformin (Metformin HCl) 500 Mg Tab 500 Mg PO BIDPC Trazodone (Trazodone HCl) 50 Mg Tab 50 Mg PO HS Temazepam 15 Mg Cap 15 Mg PO HS PRN Stool Softener (Docusate Sodium) 100 Mg Cap 1 Cap PO DAILY Furosemide 20 Mg Tab 20 Mg PO DAILY Citalopram (Citalopram Hydrobromide) 40 Mg Tab 0.5 Tab PO DAILY Review of Systems Except as stated in HPI: all other systems reviewed are Neg Physical Exam Narrative GENERAL: Well-nourished, well-developed female patient, afebrile SKIN: Focused skin assessment warm/dry. Patient has scar noted left humerus. HEAD: Normocephalic. Atraumatic EYES: No scleral icterus. No injection or drainage. NECK: Supple, trachea midline. No JVD or lymphadenopathy. CARDIOVASCULAR: Regular rate and rhythm without murmurs, gallops, or rubs. Left radial pulse is 2+. RESPIRATORY: Breath sounds equal bilaterally. No accessory muscle use. Lung sounds are clear to auscultation. GASTROINTESTINAL: Abdomen soft, non-tender, nondistended. MUSCULOSKELETAL: No cyanosis, or edema. Patient has tenderness to palpation left humerus with reduced range of motion. No tenderness over left elbow or forearm. She has a normal grasp strength in the left hand. She has full sensation of the distal left upper extremity. BACK: Nontender without obvious deformity. No CVA tenderness. Data Data Last Documented VS Vital Signs Date Time Temp Pulse Resp B/P (MAP) Pulse Ox O2 Delivery O2 Flow Rate FiO2 09/24/17 10:05 97.4 73 16 195/81 (119) 99 Orders Orders Humerus (Min 2vws) (09/24/17 ) Iv Access Insert/Monitor (09/24/17 13:00) Complete Blood Count With Diff (09/24/17 13:00) Basic Metabolic Panel (Bmp) (09/24/17 13:00) Act Partial Throm Time (Ptt) (09/24/17 13:00) Prothrombin Time / Inr (Pt) (09/24/17 13:00) Chest, Single Ap (09/24/17 ) Electrocardiogram (09/24/17 ) Hydromorphone Pf Inj (Dilaudid Pf Inj) (09/24/17 13:00) Prochlorperazine Inj (Compazine Inj) (09/24/17 13:00) Admit Order (Ed Use Only) (09/24/17 13:24) Labs Laboratory Tests Test 09/24/17 13:10 White Blood Count 7.4 TH/MM3 Red Blood Count 4.98 MIL/MM3 Hemoglobin 15.0 GM/DL Hematocrit 43.7 % Mean Corpuscular Volume 87.8 FL Mean Corpuscular Hemoglobin 30.1 PG Mean Corpuscular Hemoglobin Concent 34.2 % Red Cell Distribution Width 13.9 % Platelet Count 332 TH/MM3 Mean Platelet Volume 7.7 FL Neutrophils (%) (Auto) 67.1 % Lymphocytes (%) (Auto) 23.0 % Monocytes (%) (Auto) 6.5 % Eosinophils (%) (Auto) 2.8 % Basophils (%) (Auto) 0.6 % Neutrophils # (Auto) 5.0 TH/MM3 Lymphocytes # (Auto) 1.7 TH/MM3 Monocytes # (Auto) 0.5 TH/MM3 Eosinophils # (Auto) 0.2 TH/MM3 Basophils # (Auto) 0.0 TH/MM3 CBC Comment DIFF FINAL Differential Comment MDM Medical Decision Making Medical Screen Exam Complete: Yes Emergency Medical Condition: Yes Medical Record Reviewed: Yes Interpretation(s) Last Impressions Humerus X-Ray 09/24/17 0000 Signed Impressions: Service Date/Time: Sunday, September 24, 2017 10:44 - CONCLUSION: Hardware has been removed. Fracture midshaft humerus.. Jim Harvey MD FACR Differential Diagnosis Fracture versus chronic pain versus dislocation Narrative Course 77-year-old female presents to the emergency department for evaluation of injury to her left upper arm after undergoing multiple surgeries over the past 2 years. Most recent surgery was done by Dr. Ulloa. X-ray of the left humerus is ordered and pending. Patient states she cannot take any pain medication. X-ray of the left humerus shows the hardware has been removed, fracture midshaft humerus. [id number] -Dr. Ulloa is paged at this is the patient's orthopedist. [id number] -I spoke with my counselor, FARTUN, for Dr. Ulloa. He will states the patient has 2 options. She can go home with sling and swath and pain medications and see him in the office on Sunday or . He states the patient could be admitted, n.p.o. after midnight and he will talk to her in the morning about options. I discussed this with the patient who is unsure at this time. She would like to speak to her family. Patient has opted to be admitted to the hospital for further evaluation by orthopedist. Dr. Toro accepted admission. Patient is requesting pain medication. Per chart, she has received hydromorphone 0.5 mg IV in the past. This is ordered with Compazine 10 mg IV for nausea. Diagnosis Primary Impression: Closed left humeral fracture Qualified Codes: S42.302A - Unspecified fracture of shaft of humerus, left arm , initial encounter for closed fracture Admitting Information Admitting Physician Requests: Radha Diallo September 24, 2017 11:27
[2017-09-24] MEDS ORDERED: HYDROmorphone HCL PF 0.5 MG/0.5 ML SYRINGE IV PUSH ONE (13:00)
[2017-09-24] MEDS ORDERED: PROCHLORPERAZINE INJ 10 MG/2 ML VIAL IV PUSH ONE (13:00)
[2017-09-24 13:23] LABS: BASOPHIL % 0.6 % (0.0-2.0); EOSINOPHIL # 0.2 TH/MM3 (0-0.4); EOSINOPHIL % 2.8 % (0.0-4.0); HEMATOCRIT 43.7 % (35.0-46.0); LYMPHOCYTE # 1.7 TH/MM3 (1.0-4.8); MEAN CELL VOLUME 87.8 FL (80.0-100.0); MEAN CORPUSCULAR HEMOGLOBIN 30.1 PG (27.0-34.0); MEAN CORPUSCULAR HGB CONC 34.2 % (32.0-36.0); MEAN PLATELET VOLUME 7.7 FL (7.0-11.0); MONO % 6.5 % (0.0-8.0); MONOCYTE # 0.5 TH/MM3 (0-0.9); NEUT % 67.1 % (16.0-70.0); PLATELET COUNT 332 TH/MM3 (150-450); RED BLOOD COUNT 4.98 MIL/MM3 (4.00-5.30); RED CELL DISTRIBUTION WIDTH 13.9 % (11.6-17.2); WHITE BLOOD COUNT 7.4 TH/MM3 (4.0-11.0)
[2017-09-24] MEDS ORDERED: TEMAZEPAM 15 MG CAP PO PRN (13:30)
[2017-09-24 13:31] LABS: PROTHROMBIN TIME - PATIENT 9.8 SEC (9.8-11.6)
--- NOTE | 2017-09-24 13:36 | RADRPT ---
EXAM DATE/TIME: 09/24/2017 13:14 [facility] COMPARISON: CHEST SINGLE AP, April 03, 2017, 14:39. INDICATIONS : Evaluate for pneumothorax, pneumonia or communicable diseases. Pre-op for left humerus surgery. MEDICAL HISTORY : Diabetes mellitus type II. SURGICAL HISTORY : Hysterectomy. Appendectomy. Right ORIF shoulder. Left humerus hardware placed and removed. ENCOUNTER: Initial ACUITY: 1 day PAIN SCORE: 0/10 LOCATION: Bilateral chest FINDINGS: No new focal pleural or parenchymal opacities. Cardiomediastinal contours are within normal limits. R ight shoulder arthroplasty in place. Interval removal of hardware in the left humerus with a proximal left humeral diaphysis fracture. CONCLUSION: 1. No acute cardiopulmonary disease. Soto Mcknight MD on September 24, 2017 at 13:32 Board Certified Radiologist. This report was verified electronically.
[2017-09-24 13:40] LABS: BICARBONATE 27.4 MEQ/L (21.0-32.0); CALCIUM 9.4 MG/DL (8.5-10.1); CREATININE 0.8 MG/DL (0.50-1.00)
--- NOTE | 2017-09-24 13:43 | HHI.HP ---
[facility] Non-Staff Admission Diagnosis Left midshaft humerus fracture Diagnoses: Chief Complaint: Left arm pain. Travel History International Travel<30 Days: No Contact w/Intl Traveler <30 Da: No Traveled to Known Affected Are: No History of Present Illness 77-year-old female with history of multiple left humerus fractures and surgery including bone grafts and hardware removal presented to the emergency room with another fracture of the left humerus. Patient reports she was hanging a picture frame and was using of flashlight with her left arm. She twisted the wrong way and felt a pop. She immediately knew that she broke it. The patient is allergic to all standard pain medications including NSAIDs, Tylenol, codeine , morphine. She reports she gets violently ill with intractable nausea and vomiting to the point where she got dehydrated and has required ICU admission in the past. Orthopedic surgery was called from the emergency room who recommended either outpatient follow-up admission to the hospital. Given the fact the patient cannot tolerate any standard pain medication, she is requiring IV Dialudid, the decision was made to admit her for pain management and orthopedic surgery consultation. 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 Hardware removal Reported Medications Reported Meds & Active Scripts Active Reported Probiotic (Lactobacillus Acidophilus) 10 Billion Cell Cap 1 Cap PO DAILY Biotin 10 Mg Tab 10 Mg PO DAILY Metformin (Metformin HCl) 500 Mg Tab 500 Mg PO BIDPC Trazodone (Trazodone HCl) 50 Mg Tab 50 Mg PO HS Temazepam 15 Mg Cap 15 Mg PO HS PRN Stool Softener (Docusate Sodium) 100 Mg Cap 1 Cap PO DAILY Furosemide 20 Mg Tab 20 Mg PO DAILY Citalopram (Citalopram Hydrobromide) 40 Mg Tab 0.5 Tab PO DAILY Allergies: Coded Allergies: NSAIDS (Non-Steroidal Anti-Inflamma (Verified Allergy, Unknown, RASH, 09/24) Penicillins (Verified Allergy, Unknown, HIVES, 09/24/17) Has tolerated Keflea and IV Ancef Sulfa (Sulfonamide Antibiotics) (Verified Allergy, Unknown, HIVES, 09/24/17 ) acetaminophen (Verified Allergy, Unknown, NAUSEA, 09/24/17) codeine (Verified Allergy, Unknown, NAUSEA, 09/24/17) meperidine (Verified Allergy, Unknown, NAUSEA, 09/24/17) morphine (Verified Allergy, Unknown, VIOLENT NAUSEA, 09/24/17) Physical Exam Vital Signs Vital Signs Date Time Temp Pulse Resp B/P (MAP) Pulse Ox O2 Delivery O2 Flow Rate FiO2 09/24/17 10:05 97.4 73 16 195/81 (119) 99 Physical Exam GENERAL: This is a well-nourished, well-developed patient, in no apparent distress. CARDIOVASCULAR: Normal rate and regular rhythm without murmurs, gallops, or rubs. RESPIRATORY: Good respiratory efforts. Breath sounds equal and clear to auscultation bilaterally. GASTROINTESTINAL: Abdomen soft, non-tender, non-distended. Normal active bowel sounds MUSCULOSKELETAL: Left arm is in a sling. Tender to palpation mid shaft left humerus. NEURO: Alert & Oriented x4 to person, place, time, situation. Moves all ext x4 PSYCH: Appropriate mood and affect. Laboratory Laboratory Tests Test 09/24/17 13:10 White Blood Count 7.4 Red Blood Count 4.98 Hemoglobin 15.0 Hematocrit 43.7 Mean Corpuscular Volume 87.8 Mean Corpuscular Hemoglobin 30.1 Mean Corpuscular Hemoglobin Concent 34.2 Red Cell Distribution Width 13.9 Platelet Count 332 Mean Platelet Volume 7.7 Neutrophils (%) (Auto) 67.1 Lymphocytes (%) (Auto) 23.0 Monocytes (%) (Auto) 6.5 Eosinophils (%) (Auto) 2.8 Basophils (%) (Auto) 0.6 Neutrophils # (Auto) 5.0 Lymphocytes # (Auto) 1.7 Monocytes # (Auto) 0.5 Eosinophils # (Auto) 0.2 Basophils # (Auto) 0.0 CBC Comment DIFF FINAL Differential Comment Prothrombin Time 9.8 Prothromb Time International Ratio 1.0 Activated Partial Thromboplast Time 23.6 Blood Urea Nitrogen 10 Creatinine 0.80 Random Glucose 108 Calcium Level 9.4 Sodium Level 137 Potassium Level 3.8 Chloride Level 101 Carbon Dioxide Level 27.4 Anion Gap 9 Estimat Glomerular Filtration Rate 70 Result Diagram: 09/24/17 1310 09/24/17 1310 Imaging Last Impressions Humerus X-Ray 09/24/17 0000 Signed Impressions: Service Date/Time: Sunday, September 24, 2017 10:44 - CONCLUSION: Hardware has been removed. Fracture midshaft humerus.. Jim Harvey MD FACR Chest X-Ray 09/24/17 0000 Signed Impressions: Service Date/Time: Sunday, September 24, 2017 13:14 - CONCLUSION: 1. No acute cardiopulmonary disease. MD Jarocho Richard VTE Risk Assessment Caprini VTE Risk Assessment: Mod/High Risk (score >= 2) Caprini Risk Assessment Model Point Value = 1 Point Value = 2 Point Value = 3 Point Value = 5 Age 41-60 Minor surgery BMI > 25 kg/m2 Swollen legs Varicose veins or History of unexplained or recurrent spontaneous Oral contraceptives or hormone replacement Sepsis (< 1 month) Serious lung disease, including pneumonia (< 1 month) Abnormal pulmonary function Acute myocardial infarction Congestive heart failure (< 1 month) History of inflammatory bowel disease Medical patient at bed rest Age 61-74 Arthroscopic surgery Major open surgery (> 45 min) Laparoscopic surgery (> 45 min) Malignancy Confined to bed (> 72 hours) Immobilizing plaster cast Central venous access Age >= 75 History of VTE Family history of VTE Factor V Leiden Prothrombin [id number] Lupus anticoagulant Anticardiolipin antibodies Elevated serum homocysteine Heparin-induced thrombocytopenia Other congenital or acquired thrombophilia Stroke (< 1 month) Elective arthroplasty Hip, pelvis, or leg fracture Acute spinal cord injury (< 1 month) Prophylaxis Regimen Total Risk Factor Score Risk Level Prophylaxis Regimen 0-1 Low Early ambulation 2 Moderate Order ONE of the following: *Sequential Compression Device (SCD) *Heparin 5000 units SQ BID 3-4 Higher Order ONE of the following medications: *Heparin 5000 units SQ TID *Enoxaparin/Lovenox 40 mg SQ daily (WT < 150 kg, CrCl > 30 mL/min) *Enoxaparin/Lovenox 30 mg SQ daily (WT < 150 kg, CrCl > 10-29 mL/min) *Enoxaparin/Lovenox 30 mg SQ BID (WT < 150 kg, CrCl > 30 mL/min) AND/OR *Sequential Compression Device (SCD) 5 or more Highest Order ONE of the following medications: *Heparin 5000 units SQ TID (Preferred with Epidurals) *Enoxaparin/Lovenox 40 mg SQ daily (WT < 150 kg, CrCl > 30 mL/min) *Enoxaparin/Lovenox 30 mg SQ daily (WT < 150 kg, CrCl > 10-29 mL/min) *Enoxaparin/Lovenox 30 mg SQ BID (WT < 150 kg, CrCl > 30 mL/min) AND *Sequential Compression Device (SCD) Assessment and Plan Problem List: (1) Closed left humeral fracture ICD Code: S42.302A - Unspecified fracture of shaft of humerus, left arm, initial encounter for closed fracture Plan: Complicated given multiple previous surgery in the same area. Patient would not be able to control pain at home. Orthopedic surgery, Dr. Ulloa consulted. Pain control. Patient can only tolerate IV Dilaudid at this time. Has to be given with anti-emetics. She reports severe intractable vomiting with standard pain medications including Tylenol, NSAIDs, and most narcotics. Continue IV Dilaudid as needed. Reglan and Zofran as needed. (2) Anxiety and depression ICD Code: F41.9 - Anxiety disorder, unspecified; F32.9 - Major depressive disorder, single episode, unspecified Plan: Continue home dose Celexa and trazodone (3) Diabetes ICD Code: E11.9 - Type 2 diabetes mellitus without complications Plan: Continue metformin. Discussed Condition With ED staff Physician Certification 2 Midnight Certification Type: Admission for Inpatient Services Order for Inpatient Services The services are ordered in accordance with Medicare regulations or non- Medicare payer requirements, as applicable. In the case of services not specified as inpatient-only, they are appropriately provided as inpatient services in accordance with the 2-midnight benchmark. Estimated LOS (days): 2 days is the estimated time the patient will need to remain in the hospital, assuming treatment plan goals are met and no additional complications. Post-Hospital Plan: Not yet determined Problem Qualifiers (1) Closed left humeral fracture: Qualified Codes: S42.302A - Unspecified fracture of shaft of humerus, left arm , initial encounter for closed fracture (2) Diabetes: Rafa Toro MD September 24, 2017 13:43
[2017-09-24] MEDS ORDERED: SENNOSIDES 8.6 MG TAB PO PRN (13:45)
[2017-09-24] MEDS ORDERED: BISACODYL 10 MG SUPP RECTAL PRN (13:45)
[2017-09-24] MEDS ORDERED: NALOXONE HCL 0.4 MG/ML AMP IV PUSH PRN (13:45)
[2017-09-24] MEDS ORDERED: MAGNESIUM HYDROXIDE SUSP 30 ML CUP PO PRN (13:45)
[2017-09-24] MEDS ORDERED: LACTULOSE SYRUP 20 GM/30 ML CUP PO PRN (13:45)
[2017-09-24] MEDS ORDERED: SODIUM CHLORIDE 0.9% FLUSH 10 ML FLUSH IV FLUSH PRN (13:45)
[2017-09-24] MEDS ORDERED: ONDANSETRON HCL 4 MG/2 ML VIAL IVP PRN (13:45)
[2017-09-24 14:08] VITALS: BP 109/54; PULSE 61; RESP 19; O2SAT 96
--- NOTE | 2017-09-24 14:55 | PD ---
Data Data Last Documented VS Vital Signs Date Time Temp Pulse Resp B/P (MAP) Pulse Ox O2 Delivery O2 Flow Rate FiO2 09/24/17 10:05 97.4 73 16 195/81 (119) 99 Orders Orders Humerus (Min 2vws) (09/24/17 ) Iv Access Insert/Monitor (09/24/17 13:00) Complete Blood Count With Diff (09/24/17 13:00) Basic Metabolic Panel (Bmp) (09/24/17 13:00) Act Partial Throm Time (Ptt) (09/24/17 13:00) Prothrombin Time / Inr (Pt) (09/24/17 13:00) Chest, Single Ap (09/24/17 ) Electrocardiogram (09/24/17 ) Hydromorphone Pf Inj (Dilaudid Pf Inj) (09/24/17 13:00) Prochlorperazine Inj (Compazine Inj) (09/24/17 13:00) Admit Order (Ed Use Only) (09/24/17 13:24) Labs Laboratory Tests Test 09/24/17 13:10 White Blood Count 7.4 TH/MM3 Red Blood Count 4.98 MIL/MM3 Hemoglobin 15.0 GM/DL Hematocrit 43.7 % Mean Corpuscular Volume 87.8 FL Mean Corpuscular Hemoglobin 30.1 PG Mean Corpuscular Hemoglobin Concent 34.2 % Red Cell Distribution Width 13.9 % Platelet Count 332 TH/MM3 Mean Platelet Volume 7.7 FL Neutrophils (%) (Auto) 67.1 % Lymphocytes (%) (Auto) 23.0 % Monocytes (%) (Auto) 6.5 % Eosinophils (%) (Auto) 2.8 % Basophils (%) (Auto) 0.6 % Neutrophils # (Auto) 5.0 TH/MM3 Lymphocytes # (Auto) 1.7 TH/MM3 Monocytes # (Auto) 0.5 TH/MM3 Eosinophils # (Auto) 0.2 TH/MM3 Basophils # (Auto) 0.0 TH/MM3 CBC Comment DIFF FINAL Differential Comment Prothrombin Time 9.8 SEC Prothromb Time International Ratio 1.0 RATIO Activated Partial Thromboplast Time 23.6 SEC Blood Urea Nitrogen 10 MG/DL Creatinine 0.80 MG/DL Random Glucose 108 MG/DL Calcium Level 9.4 MG/DL Sodium Level 137 MEQ/L Potassium Level 3.8 MEQ/L Chloride Level 101 MEQ/L Carbon Dioxide Level 27.4 MEQ/L Anion Gap 9 MEQ/L Estimat Glomerular Filtration Rate 70 ML/MIN MDM Supervised Visit with KEREN: Yes Narrative Course The history, exam, and medical decision-making in the associated midlevel provider note were completed with my assistance. I reviewed and agree with the findings presented. I attest that I had a [id number] encounter with the patient on the same day, and personally performed and documented my assessment and findings in the medical record. *My assessment and Findings: This is a 77-year-old female who presents to the emergency department having had ORIF to the left humerus in March 2017 which was complicated by a postoperative infection. She had been doing well until this morning when she moved her arm and felt a crack. She has a midshaft humerus fracture on x-ray. Case was discussed with orthopedics who requested her to be admitted and will consider surgery tomorrow. Diagnosis Primary Impression: Closed left humeral fracture Qualified Codes: S42.302A - Unspecified fracture of shaft of humerus, left arm , initial encounter for closed fracture Leticia De Jesus MD September 24, 2017 14:54
[2017-09-24] MEDS: HYDROmorphone HCL PF 0.5 MG/0.5 ML SYRINGE IV PUSH PRN ×2 (15:44→21:12)
[2017-09-24 16:00] VITALS: BP 151/67; PULSE 68; RESP 17; TEMP 97.6; O2SAT 97
[2017-09-24] MEDS ORDERED: METOCLOPRAMIDE HCL 10 MG/2 ML VIAL IV PUSH PRN (16:15)
[2017-09-24] MEDS: metFORMIN HCL 500 MG TAB PO SCH (17:28)
[2017-09-24 20:00] VITALS: BP 115/59; PULSE 64; RESP 18; TEMP 97.2; O2SAT 95
[2017-09-24] MEDS: traZODone HCL 50 MG TAB PO SCH (21:12)
[2017-09-24] MEDS: SODIUM CHLORIDE 0.9% FLUSH 10 ML FLUSH IV FLUSH SCH (21:12)
[2017-09-24] MEDS ORDERED: LACTATED RINGER'S 1000 ML IV PRN (23:15)
[2017-09-24] MEDS ORDERED: POVIDONE IODINE 5% (ANTISEPSIS KIT) 4 APPLICATIONS EACH NARE PRN (23:15)
[2017-09-24] MEDS ORDERED: CHLORHEXIDINE GLUCONATE 2 % 1 PACK (2 CLOTHS) TOPICAL PRN (23:15)
[2017-09-24] MEDS ORDERED: SODIUM CHLORID 0.9% 500 ML IV PRN (23:15)
[2017-09-25 00:36] VITALS: BP 111/57; PULSE 64; RESP 18; TEMP 97.8; O2SAT 95
[2017-09-25] MEDS: HYDROmorphone HCL PF 0.5 MG/0.5 ML SYRINGE IV PUSH PRN (02:57)
[2017-09-25 04:55] VITALS: BP 113/58; PULSE 62; RESP 18; TEMP 97.8; O2SAT 94
[2017-09-25 05:55] LABS: AUTOMATED NEUTROPHIL # 3.3 TH/MM3 (1.8-7.7); BASOPHIL % 0.5 % (0.0-2.0); EOSINOPHIL # 0.3 TH/MM3 (0-0.4); EOSINOPHIL % 4.6 % (0.0-4.0); HEMATOCRIT 35.9 % (35.0-46.0); HEMOGLOBIN 12.2 GM/DL (11.6-15.3); LYMPH % 28.4 % (9.0-44.0); LYMPHOCYTE # 1.6 TH/MM3 (1.0-4.8); MEAN CORPUSCULAR HEMOGLOBIN 29.9 PG (27.0-34.0); MEAN PLATELET VOLUME 7.8 FL (7.0-11.0); MONO % 8.9 % (0.0-8.0); MONOCYTE # 0.5 TH/MM3 (0-0.9); NEUT % 57.6 % (16.0-70.0); PLATELET COUNT 281 TH/MM3 (150-450); RED BLOOD COUNT 4.08 MIL/MM3 (4.00-5.30); RED CELL DISTRIBUTION WIDTH 13.9 % (11.6-17.2); WHITE BLOOD COUNT 5.7 TH/MM3 (4.0-11.0)
[2017-09-25 06:37] LABS: BICARBONATE 26.9 MEQ/L (21.0-32.0); CALCIUM 8.4 MG/DL (8.5-10.1); CREATININE 0.82 MG/DL (0.50-1.00)
--- NOTE | 2017-09-25 06:44 | PD.ORT.PN ---
Subjective Subjective Remarks Left humerus nonunion with refracture. Objective Vitals Vital Signs Date Time Temp Pulse Resp B/P (MAP) Pulse Ox O2 Delivery O2 Flow Rate FiO2 09/25/17 04:55 97.8 62 18 113/58 (76) 94 09/25/17 00:36 97.8 64 18 111/57 (75) 95 09/24/17 20:00 97.2 64 18 115/59 (77) 95 09/24/17 16:15 20 09/24/17 16:00 97.6 68 17 151/67 (95) 97 09/24/17 14:08 61 19 109/54 (72) 96 Room Air 09/24/17 10:05 97.4 73 16 195/81 (119) 99 I/O 09/24/17 09/24/17 09/24/17 09/25/17 09/25/17 09/25/17 07:00 15:00 23:00 07:00 15:00 23:00 Intake Total 300 ml Balance 300 ml Intake Oral 300 ml # Voids 1 # Bowel Movements 0 Result Diagram: 09/25/17 0502 09/24/17 1310 Other Results Laboratory Tests Test 09/24/17 13:10 Prothromb Time International Ratio 1.0 RATIO Prothrombin Time 9.8 SEC (9.8-11.6) Objective Remarks Left upper extremity: Incisions of healed. She has pain midshaft of the humerus. No pain at the elbow forearm or wrist. Distally intact sensation over the radial ulnar median nerve distributions with good capillary refills. She is able to fully extend her fingers and make a fist Assessment & Plan Assessment and Plan Left humeral shaft midshaft fracture from nonunion N.p.o. Surgery this morning for open reduction internal fixation versus intramedullary dominique fixation of left humerus We will plan on postoperative block due to difficulty with pain medication tolerance sign consents José Moe Jr. September 25, 2017 06:44
[2017-09-25] MEDS ORDERED: APREPITANT 40 MG CAP ONE (07:37)
[2017-09-25] MEDS ORDERED: APREPITANT 40 MG CAP PO ONE (08:00)
[2017-09-25] MEDS ORDERED: GENTAMICIN SULFATE 80 MG/2 ML VIAL ONE (08:15)
[2017-09-25] MEDS ORDERED: NON-FORMULARY DRUG (Biotin 10 MG) PO SCH (09:00)
[2017-09-25] MEDS: metFORMIN HCL 500 MG TAB PO SCH ×2 (09:00→17:30)
[2017-09-25] MEDS ORDERED: VANCOMYCIN HCL 1000 MG VIAL ONE (09:30)
[2017-09-25] MEDS ORDERED: SODIUM CHLOR 0.9% 250 ML INJ 250 ML ONE (09:30)
[2017-09-25] MEDS ORDERED: ceFAZolin INJ 1,000 MG VIAL ONE (09:30)
[2017-09-25] MEDS ORDERED: diphenhydrAMINE HCL 50 MG/ML VIAL ONE (09:30)
--- NOTE | 2017-09-25 09:33 | EKG ---
Date Performed: 09/24/2017 Time Performed: 13:40:18 PTAGE: 77 years EKG: Sinus rhythm WITH OCCASIONAL SUPRAVENTRICULAR PREMATURE COMPLEXES BORDERLINE ECG Since the PREVIOUS TRACING , no significant change noted PREVIOUS TRACIN03/27/2017 06.49 DOCTOR: Valeria Tuttle Interpretating Date/Time 09/25/2017 09:33:35
[2017-09-25] MEDS ORDERED: BUPIVACAINE/EPINEPHRINE 0.25% 50 ML VIAL ONE (10:30)
[2017-09-25] MEDS ORDERED: diphenhydrAMINE HCL 25 MG CAP PO PRN (11:15)
--- NOTE | 2017-09-25 11:16 | PD.OP ---
cc: Raul Cr MD Operative Report Date of Surgery: September 25, 2017 Preoperative Diagnosis: Displaced left humerus shaft fracture Postoperative Diagnosis: Procedure: Left humerus reduction and intramedullary dominique fixation Anesthesia: General Surgeon: Raul Cr Level Vial Curvature Gauger(s): EVENS Yang PA-C The surgical procedure was assisted by my physician phlebotomist lab assistant. My P.A. presence was necessary throughout this case for the manipulation and positioning of the surgical extremity. My P.A. was assisting me throughout the duration of this procedure. The skill set of a physician phlebotomist lab assistant was medically necessary to complete this procedure. During the surgical case the surgical manager was working at the back table and the physician phlebotomist lab assistant was directly assisting me. Operation and Findings: Implants used: Synthes Plan of activity: Sling and swath, pendulum exercises Details of procedure: Patient was seen and evaluated preoperatively. Patient was found to have a displaced proximal humerus fracture. The risks and benefits of surgical and nonsurgical options were discussed in detail and informed consent was obtained for surgery. Patient was brought to the operating room and placed on or table. IV sedation and GETA were administered by anesthesiologist. Antibiotics were given prior to incision. Operative arm and shoulder were prepped with alcohol followed by Hibiclens and draped usual sterile fashion. Timeout procedure was performed. Procedure began with a 3 cm incision over the anterior/superior shoulder. The deltoid muscle was split. The rotator cuff was now split in line with fibers. A guidepin was placed in the proximal end of the humerus advanced in the humeral canal. Fluoroscopy confirmed appropriate guidepin placement. Opening reamer was now placed over the guidepin. Soft tissue was protected. A ball- tipped guidepin was now advanced down the humeral canal. The fracture was held in reduced position. The guidepin was advanced across the fracture site and into the distal humerus. Fluoroscopy confirmed appropriate guidepin placement. The nail length was now measured. The canal sequentially reamed up to size 10. The intramedullary reamings were sent for cultures. A Synthes 9 mm humeral nail was now open. The nail was now passed over the guidepin and fully seated. The guidepin was countersunk to allow for eventual compression. Using perfect crow technique 2 distal interlocking screws were placed. Soft tissue was dissected bluntly and carefully to avoid injury to vascular structures. 2 appropriate length screws were placed distally. The nail was now gently back slapped to compress the fracture. A screw was placed in the proximal slotted hole. Using the compression device additional compression was obtained across the fracture site. A second screw was placed proximally using the insertion handle as a guide. Final fluoroscopy revealed well aligned fracture with well- placed hardware. Wound was thoroughly irrigated. Fascia and rotator cuff interval were closed with #1 Vicryl, subcutaneous tissues closed with 3-0 Vicryl , and skin was closed with morelia. Sterile dressings were applied. Patient was placed into a sling. Patient was awakened and transferred to recovery in stable condition. Needle and sponge counts were correct. Raul Cr MD September 25, 2017 11:16
[2017-09-25] MEDS ORDERED: DO NOT ADM ANY ANTICOAGULANT DRUGS PRN (11:25)
[2017-09-25] MEDS ORDERED: BUPIVACAINE LIPOSOME PF 1.3% 20 ML VIAL ONE (11:53)
[2017-09-25] MEDS ORDERED: BUPIVACAINE HCL PF 0.25% 30 ML VIAL ONE (11:53)
[2017-09-25] MEDS ORDERED: ERGOCALCIFEROL (VIT D2) 50,000 UNIT CAP PO SCH (13:00)
--- NOTE | 2017-09-25 13:03 | RADRPT ---
EXAM DATE/TIME: 09/25/2017 10:53 [facility] COMPARISON: HUMERUS LEFT (MIN 2VWS), September 24, 2017, 10:44. INDICATIONS : Left humerus IM nail. MEDICAL HISTORY : Unobtainable. SURGICAL HISTORY : Unobtainable. ENCOUNTER: Sequela ACUITY: 2 days PAIN SCORE: Non-responsive. LOCATION: Left humerus. FINDINGS: Two view examination of the left humerus demonstrates interval placement of a long dominique stabilizing a mid humeral shaft fracture. There is satisfactory alignment of the fracture fragments. CONCLUSION: Satisfactory alignment following placement of an intramedullary dominique within the left humerus. Irving Benjamin MD on September 25, 2017 at 12:59 Board Certified Radiologist. This report was verified electronically.
[2017-09-25] MEDS: CALCIUM/VITAMIN D 250 MG/125 U TAB PO SCH ×2 (13:10→17:30)
[2017-09-25] MEDS: LACTOBACILLUS ACIDOPHILUS TAB PO SCH (13:10)
[2017-09-25] MEDS: DOCUSATE SODIUM 100 MG CAP PO SCH (13:10)
[2017-09-25] MEDS: CITALOPRAM HYDROBROMIDE 40 MG TAB PO SCH (13:11)
[2017-09-25] MEDS: SODIUM CHLORIDE 0.9% FLUSH 10 ML FLUSH IV FLUSH SCH ×2 (13:11→20:54)
[2017-09-25] MEDS: FUROSEMIDE 20 MG TAB PO SCH (13:11)
[2017-09-25 13:20] VITALS: BP 120/58; PULSE 77; RESP 18; TEMP 97.9; O2SAT 96
--- NOTE | 2017-09-25 13:49 | HHI.PR ---
Subjective Remarks Patient seen post op. She reports some pain but is tolerable. Objective Vitals Vital Signs Date Time Temp Pulse Resp B/P (MAP) Pulse Ox O2 Delivery O2 Flow Rate FiO2 09/25/17 13:20 97.9 77 18 120/58 (78) 96 09/25/17 12:30 72 16 106/58 (74) 95 Nasal Cannula 2 09/25/17 12:15 67 16 106/52 (70) 93 Nasal Cannula 2 09/25/17 12:00 66 16 153/69 (97) 94 Nasal Cannula 2 09/25/17 11:45 64 16 146/68 (94) 95 Nasal Cannula 2 09/25/17 11:30 98.7 74 16 155/69 (97) 95 Nasal Cannula 2 09/25/17 04:55 97.8 62 18 113/58 (76) 94 09/25/17 00:36 97.8 64 18 111/57 (75) 95 09/24/17 20:00 97.2 64 18 115/59 (77) 95 09/24/17 16:15 20 09/24/17 16:00 97.6 68 17 151/67 (95) 97 09/24/17 14:08 61 19 109/54 (72) 96 Room Air I/O 09/24/17 09/24/17 09/24/17 09/25/17 09/25/17 09/25/17 07:00 15:00 23:00 07:00 15:00 23:00 Intake Total 300 ml 900 ml Output Total 150 ml Balance 300 ml 750 ml Intake Oral 300 ml Other 900 ml Output Estimated Blood Loss 150 ml # Voids 1 # Bowel Movements 0 Result Diagram: 09/25/17 0502 09/25/17 0502 Objective Remarks GENERAL: This is a well-nourished, well-developed patient, in no apparent distress. CARDIOVASCULAR: Regular rate and rhythm without murmurs, gallops, or rubs. RESPIRATORY: Clear to auscultation. Breath sounds equal bilaterally. No wheezes , rales, or rhonchi. GASTROINTESTINAL: Abdomen soft, non-tender, nondistended. Normal active bowel sounds MUSCULOSKELETAL: Left arm in a sling. There is a clean dressing over the left shoulder. Neurovascularly intact at the fingers. NEURO: Alert & Oriented x4 to person, place, time, situation. Moves all ext x4 A/P Problem List: (1) Closed left humeral fracture ICD Code: S42.302A - Unspecified fracture of shaft of humerus, left arm, initial encounter for closed fracture Plan: Complicated given multiple previous surgery in the same area. Patient not be able to control pain at home. Orthopedic surgery, Dr. Ulloa following. S/P Left humerus reduction and intramedullary dominique fixation Pain control. Patient received anesthetic block. She reports severe intractable vomiting with standard pain medications including Tylenol, NSAIDs, and most narcotics. (2) Anxiety and depression ICD Code: F41.9 - Anxiety disorder, unspecified; F32.9 - Major depressive disorder, single episode, unspecified Plan: Continue home dose Celexa and trazodone (3) Diabetes ICD Code: E11.9 - Type 2 diabetes mellitus without complications Plan: Continue metformin. Discharge Planning Plan to discharge tomorrow if cleared by orthopedics. PT and OT to eval. Will need C vs SNF Problem Qualifiers (1) Closed left humeral fracture: Qualified Codes: S42.302A - Unspecified fracture of shaft of humerus, left arm , initial encounter for closed fracture (2) Diabetes: Rafa Toro MD September 25, 2017 13:49
[2017-09-25 16:13] VITALS: BP 133/70; PULSE 88; RESP 18; TEMP 98.3; O2SAT 96
--- NOTE | 2017-09-25 18:10 | EKG ---
Date Performed: 09/25/2017 Time Performed: 02:48:48 PTAGE: 77 years EKG: Sinus rhythm Normal ECG PREVIOUS TRACING : 09/24/2017 13.40 Since the previous tracing, no significant change noted DOCTOR: Valeria Tuttle Interpretating Date/Time 09/25/2017 18:10:14
[2017-09-25 20:00] VITALS: BP 124/63; PULSE 89; RESP 18; TEMP 98.4; O2SAT 92
[2017-09-25] MEDS: traZODone HCL 50 MG TAB PO SCH (20:53)
[2017-09-25] MEDS: VANCOMYCIN INJ 1,000 MG in SODIUM CHLOR 0.9% 250 ML INJ 250 ML IV SCH (20:53)
[2017-09-26 00:01] VITALS: BP 105/53; PULSE 80; RESP 18; TEMP 98.3; O2SAT 92
[2017-09-26 04:10] VITALS: BP 109/57; PULSE 70; RESP 18; TEMP 97.8; O2SAT 95
--- NOTE | 2017-09-26 06:32 | PD.ORT.PN ---
Subjective Subjective Remarks POD 1 s/p IMN left humerus doing well. out of bed. states no pain. Objective Vitals Vital Signs Date Time Temp Pulse Resp B/P (MAP) Pulse Ox O2 Delivery O2 Flow Rate FiO2 09/26/17 04:10 97.8 70 18 109/57 (74) 95 09/26/17 00:01 98.3 80 18 105/53 (70) 92 09/25/17 20:00 98.4 89 18 124/63 (83) 92 09/25/17 16:13 98.3 88 18 133/70 (91) 96 09/25/17 13:20 97.9 77 18 120/58 (78) 96 09/25/17 12:30 72 16 106/58 (74) 95 Nasal Cannula 2 09/25/17 12:15 67 16 106/52 (70) 93 Nasal Cannula 2 09/25/17 12:00 66 16 153/69 (97) 94 Nasal Cannula 2 09/25/17 11:45 64 16 146/68 (94) 95 Nasal Cannula 2 09/25/17 11:30 98.7 74 16 155/69 (97) 95 Nasal Cannula 2 I/O 09/25/17 09/25/17 09/25/17 09/26/17 09/26/17 09/26/17 07:00 15:00 23:00 07:00 15:00 23:00 Intake Total 900 ml 1250 ml 300 ml Output Total 150 ml Balance 750 ml 1250 ml 300 ml Intake Oral 1000 ml 300 ml IV Total 250 ml Other 900 ml Output Estimated Blood Loss 150 ml # Voids 2 1 # Bowel Movements 0 Result Diagram: 09/25/17 0502 09/25/17 0502 Objective Remarks Left upper extremity: dressings clean and dry. intact. +sling and swathe. NVI Assessment & Plan Assessment and Plan 1) Left humeral shaft midshaft fracture from nonunion s/p IMN - POD 1 -NWB -daily dressing changes POD 2 -pendulums -DC home today with HHC -f/u with Laila or PA in 2 weeks El Cool/Tire Technician PA September 26, 2017 06:32
[2017-09-26] MEDS ORDERED: HYDR-3580 PO (06:33)
--- NOTE | 2017-09-26 06:34 | HHI.FF ---
Face to Face Verification Diagnosis: (1) Closed left humeral fracture Occupational Therapy Left UE Weight Bearing: Non WB Left UE Range of Motion: Pendular Nursing Dressing Changes: Daily dressing change, Xeroform, Coverderm/Primapore I have seen patient Orly Jimenez on 09/26/17. My clinical findings support the need for the requested home health care services because: Ltd mobility - disease progression I certify that my clinical findings support that this patient is homebound because: Post-op weakness El Cool/Cooking Instructor FARUTN September 26, 2017 06:34
[2017-09-26] MEDS ORDERED: CALC250 PO (07:43)
[2017-09-26 08:00] VITALS: BP 125/75; PULSE 73; RESP 16; TEMP 97.5; O2SAT 98
[2017-09-26] MEDS: CALCIUM/VITAMIN D 250 MG/125 U TAB PO SCH (08:46)
[2017-09-26] MEDS: metFORMIN HCL 500 MG TAB PO SCH (08:47)
[2017-09-26] MEDS: CITALOPRAM HYDROBROMIDE 40 MG TAB PO SCH (08:47)
[2017-09-26] MEDS: FUROSEMIDE 20 MG TAB PO SCH (08:47)
[2017-09-26] MEDS: LACTOBACILLUS ACIDOPHILUS TAB PO SCH (08:47)
[2017-09-26] MEDS: DOCUSATE SODIUM 100 MG CAP PO SCH (08:47)
[2017-09-26] MEDS: SODIUM CHLORIDE 0.9% FLUSH 10 ML FLUSH IV FLUSH SCH (08:48)
[2017-09-26] MEDS: VANCOMYCIN INJ 1,000 MG in SODIUM CHLOR 0.9% 250 ML INJ 250 ML IV SCH (08:48)
[2017-09-26] MEDS ORDERED: CHOLECALCIFEROL (VIT D3) 1000 UNIT TAB PO SCH (09:00)
--- NOTE | 2017-09-26 10:29 | HHI.PR ---
Subjective Remarks Follow up humerus fracture, diabetes. Patient has no complaints at this time. Wants to go home today. No BM, but does report flatus. Objective Vitals Vital Signs Date Time Temp Pulse Resp B/P (MAP) Pulse Ox O2 Delivery O2 Flow Rate FiO2 09/26/17 08:00 97.5 73 16 125/75 (92) 98 09/26/17 04:10 97.8 70 18 109/57 (74) 95 09/26/17 00:01 98.3 80 18 105/53 (70) 92 09/25/17 20:00 98.4 89 18 124/63 (83) 92 09/25/17 16:13 98.3 88 18 133/70 (91) 96 09/25/17 13:20 97.9 77 18 120/58 (78) 96 09/25/17 12:30 72 16 106/58 (74) 95 Nasal Cannula 2 09/25/17 12:15 67 16 106/52 (70) 93 Nasal Cannula 2 09/25/17 12:00 66 16 153/69 (97) 94 Nasal Cannula 2 09/25/17 11:45 64 16 146/68 (94) 95 Nasal Cannula 2 09/25/17 11:30 98.7 74 16 155/69 (97) 95 Nasal Cannula 2 I/O 09/25/17 09/25/17 09/25/17 09/26/17 09/26/17 09/26/17 07:00 15:00 23:00 07:00 15:00 23:00 Intake Total 900 ml 1250 ml 300 ml Output Total 150 ml Balance 750 ml 1250 ml 300 ml Intake Oral 1000 ml 300 ml IV Total 250 ml Other 900 ml Output Estimated Blood Loss 150 ml # Voids 2 1 # Bowel Movements 0 Result Diagram: 09/25/17 0502 09/25/17 0502 Imaging Last Impressions Humerus X-Ray 09/25/17 0000 Signed Impressions: Service Date/Time: Monday, September 25, 2017 10:53 - CONCLUSION: Satisfactory alignment following placement of an intramedullary dominique within the left humerus. Irving Benjamin MD Chest X-Ray 09/24/17 0000 Signed Impressions: Service Date/Time: Sunday, September 24, 2017 13:14 - CONCLUSION: 1. No acute cardiopulmonary disease. Soto Mcknight MD Objective Remarks General: No acute distress. Heart: Regular rate and rhythm. No murmur. Lungs: Clear to auscultation bilaterally. No wheezes, rales, or rhonchi. Breathing is nonlabored. Abdomen: Soft, nontender, nondistended. Extremities: No lower extremity edema. Left upper extremity in a sling. Psych: Alert and oriented. Neuro: Normal speech. No focal deficits noted. Procedures 09/25/17 left humerus reduction and intramedullary dominique fixation Urinary Catheter: No Vascular Central Line Catheter: No A/P Problem List: (1) Closed left humeral fracture ICD Code: S42.302A - Unspecified fracture of shaft of humerus, left arm, initial encounter for closed fracture (2) Anxiety and depression ICD Code: F41.9 - Anxiety disorder, unspecified; F32.9 - Major depressive disorder, single episode, unspecified (3) Diabetes ICD Code: E11.9 - Type 2 diabetes mellitus without complications Assessment and Plan 1. Closed left humerus fracture: S/P reduction and intramedullary dominique fixation. Continue pain control. 2. Anxiety/depression: Continue Celexa, Trazodone. 3. Diabetes mellitus: Continue metformin. Monitor Accu-Cheks and cover with sliding scale insulin. 4. DVT prophylaxis: Patient is ambulatory. Discharge Planning Discharge home in stable condition with home health. Diabetic diet. Nonweightbearing LUE, otherwise activity as tolerated. Problem Qualifiers (1) Closed left humeral fracture: Qualified Codes: S42.302A - Unspecified fracture of shaft of humerus, left arm , initial encounter for closed fracture (2) Diabetes: Bartolo Hawkins MD September 26, 2017 10:29
== END 2017-09-26 12:25 | disposition home health service (06) | DRG 494 ==
LOC: NEPC 10:02 → NEDA 13:26 → OBSVTOIN 13:41 → N06B 15:03
PROVIDERS: ADMIT Family Medicine; ATTEND Family Medicine
PROC: 0PSG36Z Reposition Left Humeral Shaft with Intramedullary Internal Fixation Device, Percutaneous Approach (ICD-10-PCS; principal; 2017-09-25 09:18)
DX: S42.302A Unspecified fracture of shaft of humerus, left arm, initial encounter for closed fracture (principal); E11.9 Type 2 diabetes mellitus without complications; F41.8 Other specified anxiety disorders; K21.9 Gastro-esophageal reflux disease without esophagitis; X58.XXXA Exposure to other specified factors, initial encounter; Z88.6 Allergy status to analgesic agent; Z88.5 Allergy status to narcotic agent; Z88.0 Allergy status to penicillin; Z88.2 Allergy status to sulfonamides; Z90.710 Acquired absence of both cervix and uterus; Z96.611 Presence of right artificial shoulder joint; Z79.84 Long term (current) use of oral hypoglycemic drugs
CPT/HCPCS: 71045; 73060; 76000; 80048; 82948; 85025; 85610; 85730; 87015; 87070; 87102; 87116; 87176; 87205; 87206; 93005; C1713; C9290; J0690; J0780; J1170; J1200; J1580; J3370; J7050; J7120; J8501